=== PATIENT | male | born 2005 | race Caucasian/White ===

== ENCOUNTER 2025-10-18 14:18 | Inpatient (IN) ==
[2025-10-18] MEDS: ALBUT/IPRATROP 3MG/0.5MG NEB 3 ML VIAL ONE (14:40)
[2025-10-18] MEDS: ALBUT/IPRATROP 3MG/0.5MG NEB 3 ML VIAL INH STA (14:40)
--- NOTE | 2025-10-18 14:51 | Emergency Department Note ---
History of Present Illness General Chief complaint: Vomiting Stated complaint: VOMITING, FEVER, SOB Time Seen by Provider: 10/18/25 14:38 Source: patient Mode of arrival: ambulatory Limitations: no limitations History of Present Illness Maximum Pain Intensity: 8 Patient is a 20-year-old male who presents with shortness of breath that started after he vomited. He said he threw up twice. Nonbilious nonbloody emesis. Shortly afterwards he started to develop chest tightness and difficulty breathing. He does report some burning to his chest as well that started after the vomiting. He states last night he started to become "sick". He reports a fever of 102 Fahrenheit as well as a cough and sore throat. No sick contacts at home. No history of wheezing or asthma. He does have a history of smoking marijuana in the past but denies any current smoking. No history of blood clots, recent travel, surgery, lower extremity swelling or pain. Home Medications Medication Instructions Recorded Confirmed Type No Known Home Medications 10/18/25 10/18/25 History Allergies Allergy/AdvReac Type Severity Reaction Status Date / Time No Known Allergies Allergy Unverified 10/18/25 15:31 Past Med/Surg History Problem List (Updated 10/18/25 @ 21:22 by Eligio Abdul MD) Atelectasis (Acute) Subcutaneous emphysema (Acute) Influenza (Acute) Pneumomediastinum (Acute) Bilateral pneumothorax (Acute) Social History Smoking Status: Former smoker Preferred Language: Albanian Feels Safe at Home: Yes Review of Systems Review of systems negative outside of positive findings mentioned in HPI. Physical Exam Vital Signs Vital Signs - 24 hr 10/18/25 14:25 10/18/25 14:36 10/18/25 14:36 Temperature 36.9 C Temperature Source Temporal Artery Scan Pulse Rate 128 H 110 H Pulse Rate [Apical] Pulse Rate from SpO2 Sensor Respiratory Rate 26 H 19 Respiratory Effort / Characteristics Short of Breath Respiratory Depth Shallow Respiratory Pattern Blood Pressure 152/73 H Blood Pressure [Right Arm] Blood Pressure Mean 99 Blood Pressure Mean [Right Arm] Pulse Oximetry 84 L 87 L 87 L Oxygen Delivery Method Nasal Cannula Room Air Nebulizer Oxygen Flow Rate Sepsis Recent Fever Within 48 Hours No Sepsis New/Unexplained Change in Mental Status N/A Sepsis Action Taken by Nursing Physician Notified Oxygen Flow Rate - Titration 10 Pulse Oximetry Post Tiitration 94 10/18/25 14:55 10/18/25 14:55 10/18/25 15:00 Temperature Temperature Source Pulse Rate 120 H 119 H Pulse Rate [Apical] 120 H Pulse Rate from SpO2 Sensor 119 H Respiratory Rate 19 20 Respiratory Effort / Characteristics Respiratory Depth Shallow Respiratory Pattern Blood Pressure Blood Pressure [Right Arm] 94/68 L Blood Pressure Mean Blood Pressure Mean [Right Arm] 76 Pulse Oximetry 90 91 Oxygen Delivery Method Nasal Cannula Nasal Cannula Oxygen Flow Rate 5 7 Sepsis Recent Fever Within 48 Hours Sepsis New/Unexplained Change in Mental Status Sepsis Action Taken by Nursing Oxygen Flow Rate - Titration Pulse Oximetry Post Tiitration 10/18/25 15:00 10/18/25 15:00 10/18/25 15:30 Temperature Temperature Source Pulse Rate 131 H Pulse Rate [Apical] Pulse Rate from SpO2 Sensor 129 H Respiratory Rate Respiratory Effort / Characteristics Respiratory Depth Respiratory Pattern Blood Pressure 108/81 108/81 Blood Pressure [Right Arm] Blood Pressure Mean 94 94 Blood Pressure Mean [Right Arm] Pulse Oximetry 92 Oxygen Delivery Method Nebulizer Oxygen Flow Rate Sepsis Recent Fever Within 48 Hours Sepsis New/Unexplained Change in Mental Status Sepsis Action Taken by Nursing Oxygen Flow Rate - Titration Pulse Oximetry Post Tiitration 10/18/25 15:30 10/18/25 15:30 10/18/25 16:00 Temperature Temperature Source Pulse Rate 131 H Pulse Rate [Apical] Pulse Rate from SpO2 Sensor 132 H Respiratory Rate 36 H Respiratory Effort / Characteristics Respiratory Depth Respiratory Pattern Blood Pressure 113/67 113/67 98/50 L Blood Pressure [Right Arm] Blood Pressure Mean 93 93 66 Blood Pressure Mean [Right Arm] Pulse Oximetry 91 Oxygen Delivery Method Oxymask Oxygen Flow Rate 9 Sepsis Recent Fever Within 48 Hours Sepsis New/Unexplained Change in Mental Status Sepsis Action Taken by Nursing Oxygen Flow Rate - Titration Pulse Oximetry Post Tiitration 10/18/25 16:01 10/18/25 16:03 10/18/25 16:03 Temperature Temperature Source Pulse Rate 130 H Pulse Rate [Apical] Pulse Rate from SpO2 Sensor 132 H Respiratory Rate 22 Respiratory Effort / Characteristics Respiratory Depth Respiratory Pattern Blood Pressure 98/50 L Blood Pressure [Right Arm] Blood Pressure Mean 71 Blood Pressure Mean [Right Arm] Pulse Oximetry 88 L 90 Oxygen Delivery Method Nasal Cannula Oxymask Oxygen Flow Rate 7 9 Sepsis Recent Fever Within 48 Hours Sepsis New/Unexplained Change in Mental Status Sepsis Action Taken by Nursing Oxygen Flow Rate - Titration 9 Pulse Oximetry Post Tiitration 91 10/18/25 16:11 10/18/25 16:30 10/18/25 16:30 Temperature 38.0 C H Temperature Source Oral Pulse Rate 127 H Pulse Rate [Apical] Pulse Rate from SpO2 Sensor 128 H Respiratory Rate Respiratory Effort / Characteristics Respiratory Depth Respiratory Pattern Blood Pressure 105/68 Blood Pressure [Right Arm] Blood Pressure Mean 88 Blood Pressure Mean [Right Arm] Pulse Oximetry 92 Oxygen Delivery Method Oxymask Oxygen Flow Rate 9 Sepsis Recent Fever Within 48 Hours Sepsis New/Unexplained Change in Mental Status Sepsis Action Taken by Nursing Oxygen Flow Rate - Titration Pulse Oximetry Post Tiitration 10/18/25 17:00 10/18/25 17:00 10/18/25 17:18 Temperature Temperature Source Pulse Rate 127 H 123 H Pulse Rate [Apical] Pulse Rate from SpO2 Sensor 127 H 121 H Respiratory Rate 43 H Respiratory Effort / Characteristics Respiratory Depth Respiratory Pattern Blood Pressure 110/60 Blood Pressure [Right Arm] Blood Pressure Mean 70 Blood Pressure Mean [Right Arm] Pulse Oximetry 90 89 L Oxygen Delivery Method Oxymask Oxymask Oxygen Flow Rate 9 9 Sepsis Recent Fever Within 48 Hours Sepsis New/Unexplained Change in Mental Status Sepsis Action Taken by Nursing Oxygen Flow Rate - Titration Pulse Oximetry Post Tiitration 10/18/25 17:19 10/18/25 17:21 10/18/25 17:30 Temperature Temperature Source Pulse Rate 121 H 121 H Pulse Rate [Apical] Pulse Rate from SpO2 Sensor 121 H 119 H Respiratory Rate Respiratory Effort / Characteristics Respiratory Depth Respiratory Pattern Blood Pressure 138/62 138/62 134/58 L Blood Pressure [Right Arm] Blood Pressure Mean 75 87 83 Blood Pressure Mean [Right Arm] Pulse Oximetry 89 L 92 Oxygen Delivery Method Oxymask Oxymask Oxygen Flow Rate 9 10 Sepsis Recent Fever Within 48 Hours Sepsis New/Unexplained Change in Mental Status Sepsis Action Taken by Nursing Oxygen Flow Rate - Titration Pulse Oximetry Post Tiitration 10/18/25 18:17 10/18/25 18:30 10/18/25 18:49 Temperature Temperature Source Pulse Rate 112 H 115 H Pulse Rate [Apical] 115 H Pulse Rate from SpO2 Sensor 111 H Respiratory Rate 32 H 33 H Respiratory Effort / Characteristics Spontaneous Respiratory Depth Respiratory Pattern Tachypnea Blood Pressure 110/76 Blood Pressure [Right Arm] 135/72 Blood Pressure Mean 87 Blood Pressure Mean [Right Arm] 93 Pulse Oximetry 93 93 Oxygen Delivery Method Oxymask Oxymask Oxygen Flow Rate 10 10 Sepsis Recent Fever Within 48 Hours Sepsis New/Unexplained Change in Mental Status Sepsis Action Taken by Nursing Oxygen Flow Rate - Titration Pulse Oximetry Post Tiitration 10/18/25 19:00 10/18/25 20:10 Temperature Temperature Source Pulse Rate 112 H 112 H Pulse Rate [Apical] Pulse Rate from SpO2 Sensor 113 H Respiratory Rate 27 H 35 H Respiratory Effort / Characteristics Respiratory Depth Respiratory Pattern Blood Pressure 128/61 129/73 Blood Pressure [Right Arm] Blood Pressure Mean 83 94 Blood Pressure Mean [Right Arm] Pulse Oximetry 92 94 Oxygen Delivery Method Oxymask Oxymask Oxygen Flow Rate 10 7 Sepsis Recent Fever Within 48 Hours Sepsis New/Unexplained Change in Mental Status Sepsis Action Taken by Nursing Oxygen Flow Rate - Titration Pulse Oximetry Post Tiitration See below Constitutional WD/WN, vitals as above ENMT external ear and nose normal, oropharynx normal Neck trachea midline, no thyromegaly Respiratory + labored breathing, + retractions and + uses accessory muscles Auscultation: + wheezes Cardiovascular Rate/Rhythm: + tachycardic Heart Sounds: normal S1 and normal S2 Extremities: no calf tenderness and no edema Course Administered Medications Discontinued Medications Albuterol (Albut/Ipratrop 3mg/0.5mg Neb 3 Ml Vial) Confirm Administered Dose 3 ml .ROUTE .STK-MED ONE Stop: 10/18/25 14:34 Last Admin: 10/18/25 14:40 Dose: Not Given Documented By: YURI Albuterol (Albut/Ipratrop 3mg/0.5mg Neb 3 Ml Vial) 3 ml INH NOW STA Stop: 10/18/25 14:35 Last Admin: 10/18/25 14:40 Dose: 3 ml Documented By: YURI Albuterol (Albuterol 0.083% Nebu Soln 3 Ml Vial) 10 mg NEB NOW STA; Protocol Stop: 10/18/25 15:02 Last Admin: 10/18/25 15:10 Dose: 10 mg Documented By: YURI Hydromorphone HCl (Hydromorphone Inj 1 Mg/Ml Syringe) Confirm Administered Dose 1 mg .ROUTE .STK-MED ONE Stop: 10/18/25 19:37 Last Increment: 10/18/25 19:40 Dose: 0.5 mg Documented By: GERALD Azithromycin (Zithromax) 500 mg in 255 mls @ 127.5 mls/hr IV NOW ONE Stop: 10/18/25 18:57 Last Infusion: 10/18/25 20:20 Dose: Infused Documented By: Admin: 10/18/25 18:06 Dose: 127.5 mls/hr Documented By: GERALD Ceftriaxone Sodium (Rocephin) 1,000 mg in 50 mls @ 100 mls/hr IV NOW STA Stop: 10/18/25 17:27 Last Infusion: 10/18/25 17:46 Dose: Infused Documented By: Admin: 10/18/25 17:14 Dose: 100 mls/hr Documented By: GERALD Sodium Chloride (Nss) 1,000 mls @ 999 mls/hr IV .Q1H1M ONE Stop: 10/18/25 18:17 Last Infusion: 10/18/25 18:33 Dose: Infused Documented By: Admin: 10/18/25 17:30 Dose: 999 mls/hr Documented By: GERALD Ioversol (Optiray 320 100ml) 90 ml IV ONCE ONE Stop: 10/18/25 18:04 Last Admin: 10/18/25 18:04 Dose: 90 ml Documented By: MARGRET Ketorolac Tromethamine (Ketorolac Tromethamine 15 Mg/Ml Vial) 15 mg IV NOW ONE Stop: 10/18/25 17:42 Last Admin: 10/18/25 17:44 Dose: 15 mg Documented By: GERALD Lidocaine HCl (Lidocaine 2% Local 50 Ml Vial) Confirm Administered Dose 50 ml .ROUTE .STK-MED ONE Stop: 10/18/25 19:50 Last Admin: 10/18/25 20:19 Dose: 8 ml Documented By: GERALD Lorazepam (Lorazepam 1 Mg/1 Ml Syr Ed Inj Use) Confirm Administered Dose 1 mg .ROUTE .STK-MED ONE Stop: 10/18/25 19:38 Last Admin: 10/18/25 19:40 Dose: 0.5 mg Documented By: GERALD Magnesium Sulfate/Dextrose (Magnesium Sulfate 1gm / D5w Bag) 2 gm IV NOW STA Stop: 10/18/25 14:35 Last Admin: 10/18/25 14:57 Dose: 2 gm Documented By: YURI Methylprednisolone (Methylprednisolone 125 Mg/2 Ml Vial) 125 mg IV NOW STA Stop: 10/18/25 14:35 Last Admin: 10/18/25 14:57 Dose: 125 mg Documented By: YURI Oseltamivir Phosphate (Oseltamivir Phosphate 75 Mg Cap) 75 mg PO NOW STA Stop: 10/18/25 17:18 Last Admin: 10/18/25 17:24 Dose: 75 mg Documented By: GERALD Medical Decision Making Differential Diagnosis DDx includes but not limited to: Viral URI, reactive airway disease, influenza, COVID-19, pneumonia, pneumomediastinum, esophageal perforation, Boerhaave syndrome, pneumothorax Medical Records Attestation: I reviewed the patient's medical records. Home Medications Current Medication List: was personally reviewed by me Laboratory Data Attestation: I reviewed the patient's lab results. 10/18/25 14:30 10/18/25 14:30 Lab Results 10/18/25 Range/Units 14:30 WBC 11.12 H (4.8-10.8) K/ul RBC 5.26 (4.70-6.10) M/uL Hgb 15.6 (14.0-18.0) g/dL Hct 44.4 (42.0-52.0) % MCV 84.4 (80.0-100.0) fL MCH 29.7 (25.0-34.0) pg MCHC 35.1 (32.0-36.0) g/dL RDW Std Deviation 36.7 (36.4-46.3) fL RDW Coeff of Princess 12.2 (11.5-14.5) % Plt Count 194 (130-400) K/uL MPV 10.8 (9.4-12.4) fL Immature Gran % (Auto) 0.3 % Neut % (Auto) 85.7 % Lymph % (Auto) 7.2 % [place] % (Auto) 6.6 % Eos % (Auto) 0.1 % Baso % (Auto) 0.1 % Neut # (Auto) 9.54 H (1.40-6.50) K/uL Lymph # (Auto) 0.80 L (1.20-3.40) K/uL [place] # (Auto) 0.73 H (0.11-0.59) K/uL Eos # (Auto) 0.01 (0.00-0.50) K/uL Baso # (Auto) 0.01 (0.00-0.20) K/uL Immature Gran # (Auto) 0.03 (0.01-0.20) K/uL Sodium 136 (136-145) mmol/L Potassium 3.5 (3.5-5.1) mmol/L Chloride 99 (98-107) mmol/L Carbon Dioxide 26 (21-32) mmol/L Anion Gap 11 (3-11) BUN 12 (6-23) mg/dl Creatinine 1.00 (0.6-1.4) mg/dl Est Cr Clr Drug Dosing 142.0 ml/min eGFR 109.81 BUN/Creatinine Ratio 12.0 (10-20) Glucose 141 H (70-99(Fasting)) mg/dl Calcium 9.4 (8.6-10.3) mg/dl Adenovirus (PCR) Not Detected (NotDetected) B. pertussis DNA (PCR) Not Detected (NotDetected) B.parapertussis DNA PCR Not Detected (NotDetected) C. pneumoniae DNA (PCR) Not Detected (NotDetected) Coronavirus OC43 (PCR) Not Detected (NotDetected) Coronavirus HKU1 (PCR) Not Detected (NotDetected) Coronavirus 229E (PCR) Not Detected (NotDetected) SARS-CoV-2 (PCR) Not Detected (NotDetected) Coronavirus NL63 (PCR) Not Detected (NotDetected) Human Metapneumovir PCR Not Detected (NotDetected) Influenza A (H3) PCR DETECTED A (NotDetected) Influenza Type B (PCR) Not Detected (NotDetected) M. pneumoniae (PCR) Not Detected (NotDetected) Parainfluenza 1 (PCR) Not Detected (NotDetected) Parainfluenza 2 (PCR) Not Detected (NotDetected) Parainfluenza 3 (PCR) Not Detected (NotDetected) Parainfluenza 4 (PCR) Not Detected (NotDetected) RSV (PCR) Not Detected (NotDetected) Entero/Rhino (PCR) Not Detected (NotDetected) Imaging Data Radiologist's Impression: Chest X-Ray 10/18/25 14:34 SINGLE VIEW CHEST CLINICAL HISTORY: Dyspnea FINDINGS: An AP, portable, upright chest radiograph is obtained. No prior studies are available for comparison at the time of dictation. The cardiomediastinal silhouette is unremarkable. There is mild bibasilar atelectasis. No airspace consolidation or large pleural effusion is identified. Pneumomediastinum is observed. There is a small right apical pneumothorax with approximately 6 mm pleural separation. There is also likely a small left-sided pneumothorax. These are difficult to assess due to overlying subcutaneous gas. The bony thorax is grossly intact. There is extensive subcutaneous emphysema in the lower neck and upper chest bilaterally. IMPRESSION: 1. Pneumomediastinum with extensive subcutaneous emphysema in the lower neck and upper chest. 2. There is a small right apical pneumothorax, and likely a small left apical pneumothorax. 3. No airspace consolidation or large pleural effusion is identified. ACT 112: Negative or not required by law. Electronically signed by: Gael Cain M.D. 10/18/2025 3:[address] 10/18/25 17:42 Technique: Axial computed tomography images were obtained of the chest after the administration of intravenous and oral contrast No prior examination is available for comparison Findings: There is a moderate sized left pneumothorax. There is a minimal right pneumothorax There is a large amount of pneumomediastinum, extending into chest wall air. No clear leakage of contrast is seen into the mediastinum from the esophagus. There is no clear esophageal wall thickening There is complete collapse of the left lower lobe. There is partial collapse of the right lower lobe. There is no pleural effusion. There is no sign of pulmonary fibrosis or other diffuse interstitial process. No endobronchial lesion is seen There is no mediastinal, hilar, or axillary adenopathy. The thoracic aorta appears unremarkable with no sign of aneurysm or dissection. There is no pericardial effusion The visualized upper abdomen appears unremarkable. No fracture is seen. No focal osseous lesion is evident Impression: 1. Moderate sized left pneumothorax and minimal right pneumothorax 2. Large amount of pneumomediastinum and chest wall air 3. No clear evidence of esophageal perforation 4. Left lower lobe collapse and partial right lower lobe collapse ACT 112: Positive. There are findings on this exam that require communication between the performing entity and the patient following Patient Test Result Information Act ([place] ACT 112) guidelines. Electronically signed by Walter Tabor 10-18-2025 6:54 PM MDM Narrative Patient is a 20-year-old male presents with shortness of breath and hypoxia. He was hypoxic to 84% in triage. Diffuse wheezing noted on my initial examination. DuoNeb treatment ordered was ordered. Patient was brought back to 8 1 to initiate treatment. Was also given IV magnesium and Solu-Medrol while workup was initiated. Initial chest x-ray shows evidence of small apical pneumothoraces bilaterally as well as significant pneumomediastinum extending to the neck bilaterally. Discussed the case with Dr. Terrazas with pulmonology and hospitalist team who recommend CT of the chest with oral contrast to rule out esophageal perforation. CT without evidence of esophageal injury. Significant lower lobe collapse bilaterally worse on the left with a moderate-sized pneumothorax. Dr. Carrasquillo placed a pigtail catheter at bedside here today and patient will be admitted to the ICU team. Broad-spectrum antibiotics were ordered to cover for possible underlying pneumonia. Influenza A positive here today. Tamiflu was ordered and given. No evidence of septic shock or severe sepsis. Stable for admission to hospitalist service. Authorized and Performed by: Total critical care time: Approximately 40 CC diagnosis: Due to a high probability of clinically significant, life threatening deterioration, the patient required my highest level of preparedness to intervene emergently and I personally spent this critical care time directly and personally managing the patient. This critical care time included obtaining a history; examining the patient; pulse oximetry; ordering and review of studies; arranging urgent treatment with development of a management plan; evaluation of patient's response to treatment; frequent reassessment; and, discussions with other providers. This critical care time was performed to assess and manage the high probability of imminent, life-threatening deterioration that could result in multi-organ failure. It was exclusive of separately billable procedures and treating other patients and teaching time. Please see MDM section and the rest of the note for further information on patient assessment and treatment. Impression & Plan Bilateral pneumothorax, Pneumomediastinum, Influenza, Subcutaneous emphysema, Atelectasis Discharge Plan Visit Data Chief Complaint: Vomiting Stated Complaint: VOMITING, FEVER, SOB ED Provider: Eligio Abdul Discharge Problem: Bilateral pneumothorax, Pneumomediastinum, Influenza, Subcutaneous emphysema, Atelectasis Patient Disposition: Admitted As Inpatient Condition: Critical Forms Stand Alone Forms: [facility] Prescriptions Prescriptions: No Action No Known Home Medications Referrals Referrals: PCP,NO [Primary Care Provider] -
[2025-10-18] MEDS: MAGNESIUM SULFATE 1GM / D5W BAG IV STA (14:57)
[2025-10-18] MEDS: ALBUTEROL 0.083% NEBU SOLN 3 ML VIAL NEB STA (15:10)
[2025-10-18 15:16] LABS: Hematocrit (blood only) 44.4 % (42.0-52.0); Hemoglobin 15.6 g/dL (14.0-18.0); Immature Granulocytes # (auto) 0.03 K/uL (0.01-0.20); Immature Granulocytes % (auto) 0.3 %; Mean Corpuscular Hemoglobin 29.7 pg (25.0-34.0); Mean Corpuscular Volume 84.4 fL (80.0-100.0); Platelet Count 194 K/uL (130-400); RDW Standard Deviation 36.7 fL (36.4-46.3); Red Blood Count 5.26 M/uL (4.70-6.10); White Blood Count 11.12 K/ul (4.8-10.8)
[2025-10-18 15:35] LABS: Anion Gap 11.0 (3-11); Blood Urea Nitrogen 12.0 mg/dl (6-23); Calcium 9.4 mg/dl (8.6-10.3); Carbon Dioxide 26.0 mmol/L (21-32); Chloride 99.0 mmol/L (98-107); Creatinine Clr Calc Pharmacy 142.0 ml/min; Glucose 141.0 mg/dl (70-99(Fasting)); Potassium 3.5 mmol/L (3.5-5.1); Sodium 136.0 mmol/L (136-145)
--- NOTE | 2025-10-18 15:37 | XRay Report ---
SINGLE VIEW CHEST CLINICAL HISTORY: Dyspnea FINDINGS: An AP, portable, upright chest radiograph is obtained. No prior studies are available for c omparison at the time of dictation. The cardiomediastinal silhouette is unremarkable. There is mild b ibasilar atelectasis. No airspace consolidation or large pleural effusion is identified. Pneumomedias tinum is observed. There is a small right apical pneumothorax with approximately 6 mm pleural separat ion. There is also likely a small left-sided pneumothorax. These are difficult to assess due to overl little subcutaneous gas. The bony thorax is grossly intact. There is extensive subcutaneous emphysema i n the lower neck and upper chest bilaterally. IMPRESSION: 1. Pneumomediastinum with extensive subcutaneous emphysema in the lower neck and upper chest. 2. There is a small right apical pneumothorax, and likely a small left apical pneumothorax. 3. No airspace consolidation or large pleural effusion is identified. ACT 112: Negative or not required by law. Electronically signed by: Gael Cain M.D. 10/18/2025 3:35 PM
[2025-10-18 16:24] LABS: Chlamydia pneumoniae PCR Not Detected (NotDetected); Coronavirus 229E PCR Not Detected (NotDetected); Coronavirus CoV-2 (COVID19)PCR Not Detected (NotDetected); Coronavirus HKU1 PCR Not Detected (NotDetected); Coronavirus NL63 PCR Not Detected (NotDetected); Coronavirus OC43PCR Not Detected (NotDetected); Human Metapneumovirus PCR Not Detected (NotDetected); Influenza A (H3) PCR DETECTED (NotDetected); Parainfluenza Virus 1 PCR Not Detected (NotDetected); Parainfluenza Virus 2 PCR Not Detected (NotDetected); Parainfluenza Virus 3 PCR Not Detected (NotDetected); Parainfluenza Virus 4 PCR Not Detected (NotDetected); Respiratory Syncytial VirusPCR Not Detected (NotDetected); Rhinovirus/Enterovirus PCR Not Detected (NotDetected)
[2025-10-18] MEDS: cefTRIAXone SODIUM 1,000 MG/50 ML BAG IV STA (17:14)
[2025-10-18] MEDS: OSELTAMIVIR PHOSPHATE 75 MG CAP PO STA (17:24)
[2025-10-18] MEDS: SODIUM CHLORIDE 0.9% 1,000 ML IV ONE (17:30)
[2025-10-18] MEDS: KETOROLAC TROMETHAMINE 15 MG/ML VIAL IV ONE (17:44)
[2025-10-18] MEDS: OPTIRAY 320 100ml IV ONE (18:04)
[2025-10-18] MEDS: AZITHROMYCIN 500 MG/255 ML BAG IV ONE (18:06)
--- NOTE | 2025-10-18 18:56 | CT Scan Report ---
Technique: Axial computed tomography images were obtained of the chest after the administration of intravenous and oral contrast No prior examination is available for comparison Findings: There is a moderate sized left pneumothorax. There is a minimal right pneumothorax There is a large amount of pneumomediastinum, extending into chest wall air. No clear leakage of contrast is seen into the mediastinum from the esophagus. There is no clear esophageal wall thickening There is complete collapse of the left lower lobe. There is partial collapse of the right lower lobe. There is no pleural effusion. There is no sign of pulmonary fibrosis or other diffuse interstitial process. No endobronchial lesion is seen There is no mediastinal, hilar, or axillary adenopathy. The thoracic aorta appears unremarkable with no sign of aneurysm or dissection. There is no pericardial effusion The visualized upper abdomen appears unremarkable. No fracture is seen. No focal osseous lesion is evident Impression: 1. Moderate sized left pneumothorax and minimal right pneumothorax 2. Large amount of pneumomediastinum and chest wall air 3. No clear evidence of esophageal perforation 4. Left lower lobe collapse and partial right lower lobe collapse ACT 112: Positive. There are findings on this exam that require communication between the performing entity and the patient following Patient Test Result Information Act ([place] ACT 112) guidelines. Electronically signed by Walter Tbaor 10-18-2025 6:54 PM
[2025-10-18] MEDS: LORazepam 1 MG/1 ML SYR ED Inj Use ONE (19:40)
[2025-10-18] MEDS: HYDROmorphone INJ 1 MG/ML SYRINGE ONE (20:18)
[2025-10-18] MEDS: LIDOCAINE 2% LOCAL 50 ML VIAL ONE (20:19)
--- NOTE | 2025-10-18 20:50 | Procedure Note ---
Procedure Note Date of Service October 18, 2025 Written consent obtained from the patient prior to the procedure. Timeout performed immediately prior to the procedure. Limited thoracic ultrasound was performed of the left hemithorax. Lung point was identified at the anterior aspect just medial to the left nipple at the fifth intercostal space. This area was marked. Pneumothorax catheter (8.5 Filipino left-sided) Procedure: Left-sided pneumothorax catheter Indication: Pneumothorax Anesthesia: 15 mL lidocaine 1% Prior to procedure, chest x-ray films were reviewed by myself and demonstrated a loculated left pneumothorax. A time-out was completed verifying correct patient, procedure, site, positioning, and implant(s) or special equipment if applicable. Utilizing bedside ultrasound, chest wall was evaluated for location for optimal chest tube placement. Location between the fifth and sixth ribs were marked on the skin using gentle pressure. The left sided chest wall was prepped with chlorhexidine and draped in the typical sterile fashion. 15 mL of 1% Lidocaine without epinephrine was used to anesthetize the skin down to the dorsal surface of the fifth rib. Air return confirmed entry into the pleural space. Lidocaine was injected into the pleural space for increased anesthetization. Introducer needle on syringe was inserted in perpendicular fashion taking care to ride just above the dorsal surface of the fifth rib. Entry into the pleural space was heralded by air return into the syringe while under gentle aspiration. Guide wire was advanced into the pleural space without resistance and the introducer needle was subsequently removed. Scalpel was used to make small incision of the superficial tissue, parallel to the direction of the rib anatomy. Dilator was advanced uneventfully over the guide wire into the pleural space. 8.5 Filipino Catheter was inserted into the pleural space. Inner introducer and guide wire were removed. Drain was immediately connected to pre-prepared SUSAN pleur-evac system. Pigtail was sutured securely in place and sterile dressing was applied. Chest tube was placed to -10 cmH2O suction. Patient tolerated procedure well. Blood Loss: Minimal Complications: None Post procedure Chest X-ray was ordered and reviewed by myself which demonstrated adequate placement. [facility] [place] Procedure Codes (Charges) Pulmonary/Thoracic Procedure 1: Pulmonary and Thoracic: 62530 Tube thoracostomy Procedure 2: Pulmonary and Thoracic: 94314 US, Chest, real time with imaging documentation Coding CPT Codes Pulmonary/Thoracic - Pulmonary and Thoracic: 46924 Tube thoracostomy ([id number]) Pulmonary/Thoracic - Pulmonary and Thoracic: 60056 US, Chest, real time with imaging documentation ([id number]) Additional Codes Date of Service ([facility].SURGERY)
--- NOTE | 2025-10-18 20:51 | Pulmonary Consultation ---
Date of Consultation October 18, 2025 Assessment & Plan (1) Bilateral pneumothorax: Left-sided anterior fifth intercostal space 8.5 Mongolian pigtail catheter placed with improvement of symptoms. Will leave this -10 cm water suction. Monitor daily x-rays. Monitor for signs of pneumo pericardium in light of the extensive pneumomediastinum. Bilateral pneumothoraces and pneumomediastinum secondary to extensive coughing from acute bronchitis related to viral infection. Will schedule [id number] cough suppressants. (2) Pneumomediastinum: See above. Monitor hemodynamics and respiratory status closely. Daily x-rays. (3) Influenza: Start Tamiflu. Supportive care. Avoid positive pressure if able. (4) Subcutaneous emphysema: Secondary to underlying pneumothorax and pneumomediastinum. Should resolve with time. (5) Atelectasis: Patient with extensive bibasilar atelectasis leading to intrapulmonary shunt and hypoxemia. I think this is the main driving force for his hypoxemia. Initiate incentive spirometry. Avoid positive pressure ventilation if able in light of the pneumomediastinum and pneumothorax. Plan Patient's parents updated over the phone extensively per the patient's request and with his consent. I spent 15 minutes reviewing the electronic medical record/relevant imaging, 30 minutes discussing diagnosis and treatment plan with patient/family, and 10 minutes discussing care plan with ancillary staff such as RT/RN/pharmacist/drop wire aligner/PT/OT/other consulting medical services. CRITICAL CARE TIME I have personally spent 55 minutes of critical care time in the direct management of this patient. This is a life/limb threatening event. This includes time spent evaluating patient, direct bedside care, chart review, placing or ders, interpretation of diagnostic studies, discussion with consultants, patient, and family members, as well as other required patient management activities. This time is exclusive of all separately billable procedures, and teaching time and separate from and in addition to any other critical care service time. History of Present Illness Reason for Consultation: Bilateral pneumothoraces and pneumomediastinum History of Present Illness 20-year-old male with no significant past medical history who developed flulike illness and sudden onset chest pain and shortness of breath last night presenting to the ER. Patient underwent a chest x-ray which showed small bilateral pneumothoraces. Due to worsening respiratory status he underwent a CT chest which revealed a moderate-sized medial left sided pneumothorax and a small right apical pneumothorax. Extensive pneumomediastinum and subcu air was identified. Patient noted some pressure in his chest and dyspnea. Consent was obtained from the patient to place a left-sided pleural catheter and this was placed with evacuation of the pneumothorax and improvement of symptoms. Patient has been febrile and I asked the ER to start ceftriaxone and azithromycin. Allergies Allergy/AdvReac Type Severity Reaction Status Date / Time No Known Allergies Allergy Unverified 10/18/25 15:31 Home Medications Medication Instructions Recorded Confirmed Type No Known Home Medications 10/18/25 10/18/25 History Patient History Social History Smoking Status: Former smoker Preferred Language: Puerto Rican Feels Safe at Home: Yes Review of Systems Review of Systems: All systems reviewed & are unremarkable except as noted in HPI & below Physical Exam Physical Exam: Constitutional: Patient appears to be of their stated age. Patient is in no apparent distress. Patient is well-developed. Anxious appearing. Eyes: Pupils are equal round and reactive to light. Conjunctivae are normal. Anicteric sclera. Ears nose, mouth and throat: Mallampati class 2. Normal posterior oropharynx. Uvula is midline. Neck: Trachea is midline. Visual inspection is normal. Respiratory: Tachypneic. Extensive crepitus throughout the upper chest wall neck region. Diminished breath sounds bilaterally. Cardiovascular: Regular rate and rhythm. No murmurs. No edema. Gastrointestinal: Normal bowel sounds, soft, nontender and nondistended. No hepatosplenomegaly noted. Musculoskeletal: No cyanosis. Patient is able to move all extremities. Strength is 5 out of 5 in the upper and lower extremities. Skin: No rashes, warm dry and intact. Neurologic: No obvious focal neurological deficits seen. Psychiatric: Alert and oriented x3 with a euthymic affect. Results & Data Results & Data Vital Signs (Past 12 Hours) Vital Signs Temp Pulse Pulse Resp BP BP Pulse Ox 10/18/25 20:10 112 H 35 H 129/73 94 10/18/25 19:00 112 H 27 H 128/61 92 10/18/25 18:49 115 H 10/18/25 18:30 112 H 33 H 110/76 93 10/18/25 18:17 115 H 32 H 135/72 93 10/18/25 17:30 121 H 134/58 L 92 10/18/25 17:21 121 H 138/62 89 L 10/18/25 17:19 138/62 10/18/25 17:18 123 H 89 L 10/18/25 17:00 127 H 43 H 90 10/18/25 17:00 110/60 10/18/25 16:30 127 H 92 10/18/25 16:30 105/68 10/18/25 16:11 38.0 C H 10/18/25 16:03 130 H 22 90 10/18/25 16:03 98/50 L 10/18/25 16:01 88 L 10/18/25 16:00 131 H 36 H 98/50 L 91 10/18/25 15:30 113/67 10/18/25 15:30 113/67 10/18/25 15:30 131 H 92 10/18/25 15:00 108/81 10/18/25 15:00 108/81 10/18/25 15:00 119 H 20 91 10/18/25 14:55 120 H 19 94/68 L 90 10/18/25 14:55 120 H 10/18/25 14:36 87 L 10/18/25 14:36 110 H 19 87 L 10/18/25 14:25 36.9 C 128 H 26 H 152/73 H 84 L O2 Del Method O2 Flow Rate 10/18/25 20:10 Oxymask 7 10/18/25 19:00 Oxymask 10 10/18/25 18:49 10/18/25 18:30 Oxymask 10 10/18/25 18:17 Oxymask 10 10/18/25 17:30 Oxymask 10 10/18/25 17:21 Oxymask 9 10/18/25 17:19 10/18/25 17:18 Oxymask 9 10/18/25 17:00 Oxymask 9 10/18/25 17:00 10/18/25 16:30 Oxymask 9 10/18/25 16:30 10/18/25 16:11 10/18/25 16:03 Oxymask 9 10/18/25 16:03 10/18/25 16:01 Nasal Cannula 7 10/18/25 16:00 Oxymask 9 10/18/25 15:30 10/18/25 15:30 10/18/25 15:30 Nebulizer 10/18/25 15:00 10/18/25 15:00 10/18/25 15:00 Nasal Cannula 7 10/18/25 14:55 Nasal Cannula 5 10/18/25 14:55 10/18/25 14:36 Nebulizer 10/18/25 14:36 Room Air 10/18/25 14:25 Nasal Cannula PG Care Time/CCT Total # of Minutes Spent Total Time Spent with Patient: Total time spent is greater than 50% in coordination of care (as documented) at patient's floor/unit and/or counseling patient: Coding Level of Care Code 03906 INT INP/OBS CARE 2/55MIN Diagnoses Bilateral pneumothorax J93.9 Pneumomediastinum J98.2 Influenza J11.1 Subcutaneous emphysema T79.7XXA Atelectasis J98.11
--- NOTE | 2025-10-18 21:49 | History & Physical Report ---
Date of Service October 18, 2025 Assessment & Plan (1) Bilateral pneumothorax: (2) Pneumomediastinum: (3) Influenza A: (4) Subcutaneous emphysema: Plan The patient is a 20-year-old male with no significant past medical history who had developed some general flulike symptoms for a few days. He then on the day of admission, developed severe shortness of breath and chest pain after vomiting twice. He then developed a temperature up to a max of 102 F, and had a persistent cough and sore throat. He denies any recent travels or sick exposures. No recent marijuana use. Workup in the emergency department included WBC of 11.12, glucose of 141, respiratory BioFire test positive for influenza A initial chest x-ray suggested pneumomediastinum with extensive subcutaneous emphysema in the lower neck and upper chest. There was a small right apical pneumothorax and likely a small left apical pneumothorax. There was no airspace consolidation or large pleural effusion identified. CT scan of the chest revealed a moderate size left pneumothorax and minimal right pneumothorax. Large amount of pneumomediastinum and chest wall air. No evidence of esophageal perforation. Left lower lobe collapse and partial right lower lobe collapse. Patient was seen by pulmonology/critical care Dr. Terrazas while in the ED, and had a chest tube placed left anteriorly. He was then referred for evaluation for admission by hospitalist service to the ICU. Spontaneous bilateral pneumothorax/pneumomediastinum/subcutaneous emphysema- Pneumothorax left greater than right, with chest tube placement anteriorly by critical care medicine while in the ED. Continuing chest tube and care per ICU. Azithromycin 1050 mg p.o. every morning Ceftriaxone 2 g IV every 24 hours Pantoprazole 40 mg IV daily DuoNebs every 2 hours as needed Acetaminophen 600 mg by mouth every 4 hours as needed for mild pain or fever Morphine sulfate 4 mg IV every 3 hours as needed for moderate to severe pain Zofran 4 mg IV every 6 hours as needed Guaifenesin with codeine phosphate 5 mL p.o. every 6 hours Influenza A- Tamiflu 75 mg p.o. twice daily History of Present Illness Primary Care Provider: NO PCP The patient is a 20-year-old male with no significant past medical history who had developed some general flulike symptoms for a few days. He then on the day of admission, developed severe shortness of breath and chest pain after vomiting twice. He then developed a temperature up to a max of 102 F, and had a persistent cough and sore throat. He denies any recent travels or sick exposures. No recent marijuana use. Workup in the emergency department included WBC of 11.12, glucose of 141, respiratory BioFire test positive for influenza A initial chest x-ray suggested pneumomediastinum with extensive subcutaneous emphysema in the lower neck and upper chest. There was a small right apical pneumothorax and likely a small left apical pneumothorax. There was no airspace consolidation or large pleural effusion identified. CT scan of the chest revealed a moderate size left pneumothorax and minimal right pneumothorax. Large amount of pneumomediastinum and chest wall air. No evidence of esophageal perforation. Left lower lobe collapse and partial right lower lobe collapse. Patient was seen by pulmonology/critical care Dr. Terrazas while in the ED, and had a chest tube placed left anteriorly. He was then referred for evaluation for admission by hospitalist service to the ICU Allergies Allergy/AdvReac Type Severity Reaction Status Date / Time No Known Allergies Allergy Unverified 10/18/25 15:31 Home Medications Medication Instructions Recorded Confirmed Type No Known Home Medications 10/18/25 10/18/25 History Past Med/Surg History Problem List (Updated 10/19/25 @ 06:21 by Mamadou Jules MD) Influenza A Atelectasis (Acute) Subcutaneous emphysema (Acute) Influenza (Acute) Pneumomediastinum (Acute) Bilateral pneumothorax (Acute) Social History Smoking Status: Never smoker Second Hand Exposure: No; Do You Dip or Chew Tobacco: No; Tobacco Cessation Education Requested by Patient: No Hx Alcohol Use: Yes Alcohol type: beer and hard liquor Hx Substance Use: No Preferred Language: Polish Communication Ability: Effective Ward Service Supervisor Required: No Beliefs That Will Affect Care: None Current Living Situation: Other Current Living Situation Comment: Lives with 4 Roommates Other Information That Helps Us Care for You: No Feels Safe at Home: Yes Safety Concerns: Feels Safe At This Time Assistive Devices: None Review of Systems Review of Systems: The patient denies lower extremity swelling, diarrhea , constipation, abdominal pain, pelvic pain, blood in urine or stool, dysuria, urinary frequency or urgency, loss of consciousness, rash, abnormal bruising or bleeding, focal weakness, numbness or tingling in arms or legs. The review of systems is otherwise negative other than for that already noted above, and at least 10 systems have been reviewed. Physical Exam Physical Exam: The patient is awake, alert and oriented 3, normocephalic and atraumatic, sitting upright in bed and in no acute distress at the time of my exam, post chest tube placement HEENT--PERRL, EOMI, mucous membranes and oropharynx normal Neck--supple. No JVD. No bruits. Thyroid normal, trachea midline, no adenopathy. Heart--normal S1 and S2. No murmurs, rubs or gallops. Lungs--decreased breath sounds on left. no respiratory distress, no accessory muscle use post chest tube placement.-Chest wall crepitus Abdomen--normal bowel sounds and soft. Nontender. Nondistended, no hernias or masses, no organomegaly. Extremities--no cyanosis or clubbing. No edema. There are good distal pulses b/l. Dermatologic--normal skin turgor, normal color, no abnormal lymph nodes, no rash. Neurologic--cranial nerves II through XII grossly intact. Rheumatologic--normal range of motion. Psychiatric--normal affect. Results & Data Results & Data Vital Signs (Past 12 Hours) Vital Signs Temp Pulse Pulse Resp BP BP Pulse Ox 10/18/25 20:10 112 H 35 H 129/73 94 10/18/25 19:00 112 H 27 H 128/61 92 10/18/25 18:49 115 H 10/18/25 18:30 112 H 33 H 110/76 93 10/18/25 18:17 115 H 32 H 135/72 93 10/18/25 17:30 121 H 134/58 L 92 10/18/25 17:21 121 H 138/62 89 L 10/18/25 17:19 138/62 10/18/25 17:18 123 H 89 L 10/18/25 17:00 127 H 43 H 90 10/18/25 17:00 110/60 10/18/25 16:30 127 H 92 10/18/25 16:30 105/68 10/18/25 16:11 38.0 C H 10/18/25 16:03 130 H 22 90 10/18/25 16:03 98/50 L 10/18/25 16:01 88 L 10/18/25 16:00 131 H 36 H 98/50 L 91 10/18/25 15:30 113/67 10/18/25 15:30 113/67 10/18/25 15:30 131 H 92 10/18/25 15:00 108/81 10/18/25 15:00 108/81 10/18/25 15:00 119 H 20 91 10/18/25 14:55 120 H 19 94/68 L 90 10/18/25 14:55 120 H 10/18/25 14:36 87 L 10/18/25 14:36 110 H 19 87 L 10/18/25 14:25 36.9 C 128 H 26 H 152/73 H 84 L O2 Del Method O2 Flow Rate 10/18/25 20:10 Oxymask 7 10/18/25 19:00 Oxymask 10 10/18/25 18:49 10/18/25 18:30 Oxymask 10 10/18/25 18:17 Oxymask 10 10/18/25 17:30 Oxymask 10 10/18/25 17:21 Oxymask 9 10/18/25 17:19 10/18/25 17:18 Oxymask 9 10/18/25 17:00 Oxymask 9 10/18/25 17:00 10/18/25 16:30 Oxymask 9 10/18/25 16:30 10/18/25 16:11 10/18/25 16:03 Oxymask 9 10/18/25 16:03 10/18/25 16:01 Nasal Cannula 7 10/18/25 16:00 Oxymask 9 10/18/25 15:30 10/18/25 15:30 10/18/25 15:30 Nebulizer 10/18/25 15:00 10/18/25 15:00 10/18/25 15:00 Nasal Cannula 7 10/18/25 14:55 Nasal Cannula 5 10/18/25 14:55 10/18/25 14:36 Nebulizer 10/18/25 14:36 Room Air 10/18/25 14:25 Nasal Cannula Laboratory Results Laboratory Results WBC 11.53 K/ul (4.8-10.8) H 10/19/25 04:22 RBC 4.92 M/uL (4.70-6.10) 10/19/25 04:22 Hgb 14.6 g/dL (14.0-18.0) 10/19/25 04:22 Hct 42.1 % (42.0-52.0) 10/19/25 04:22 MCV 85.6 fL (80.0-100.0) 10/19/25 04:22 MCH 29.7 pg (25.0-34.0) 10/19/25 04:22 MCHC 34.7 g/dL (32.0-36.0) 10/19/25 04:22 RDW Std Deviation 38.4 fL (36.4-46.3) 10/19/25 04:22 RDW Coeff of Princess 12.4 % (11.5-14.5) 10/19/25 04:22 Plt Count 190 K/uL (130-400) 10/19/25 04:22 MPV 10.4 fL (9.4-12.4) 10/19/25 04:22 Immature Gran % (Auto) 0.7 % 10/19/25 04:22 Neut % (Auto) 89.5 % 10/19/25 04:22 Lymph % (Auto) 3.6 % 10/19/25 04:22 [place] % (Auto) 6.1 % 10/19/25 04:22 Eos % (Auto) 0.0 % 10/19/25 04:22 Baso % (Auto) 0.1 % 10/19/25 04:22 Neut # (Auto) 10.33 K/uL (1.40-6.50) H 10/19/25 04:22 Lymph # (Auto) 0.41 K/uL (1.20-3.40) L 10/19/25 04:22 [place] # (Auto) 0.70 K/uL (0.11-0.59) H 10/19/25 04:22 Eos # (Auto) 0.00 K/uL (0.00-0.50) 10/19/25 04:22 Baso # (Auto) 0.01 K/uL (0.00-0.20) 10/19/25 04:22 Immature Gran # (Auto) 0.08 K/uL (0.01-0.20) 10/19/25 04:22 PT 10.9 Seconds (9.0-12.0) 10/19/25 04:22 INR 1.0 (0.9-1.1) 10/19/25 04:22 APTT 30 Seconds (21-31) 10/19/25 04:22 PTT Ratio 1.1 10/19/25 04:22 Sodium 136 mmol/L (136-145) 10/19/25 04:22 Potassium 4.7 mmol/L (3.5-5.1) D 10/19/25 04:22 Chloride 103 mmol/L (98-107) 10/19/25 04:22 Carbon Dioxide 26 mmol/L (21-32) 10/19/25 04:22 Anion Gap 7 (3-11) 10/19/25 04:22 BUN 12 mg/dl (6-23) 10/19/25 04:22 Creatinine 0.81 mg/dl (0.6-1.4) 10/19/25 04:22 Est Cr Clr Drug Dosing 173.1 ml/min 10/19/25 04:22 eGFR 128.64 10/19/25 04:22 BUN/Creatinine Ratio 14.8 (10-20) 10/19/25 04:22 Glucose 147 mg/dl (70-99(Fasting)) H 10/19/25 04:22 Calcium 9.3 mg/dl (8.6-10.3) 10/19/25 04:22 Magnesium 2.6 mg/dl (1.7-2.4) H 10/19/25 04:22 Total Bilirubin 0.5 mg/dl (0.2-1.0) 10/19/25 04:22 AST 16 U/L (13-39) 10/19/25 04:22 ALT 19 U/L (7-52) 10/19/25 04:22 Alkaline Phosphatase 58 U/L (34-104) 10/19/25 04:22 Total Protein 8.1 gm/dl (6.0-8.3) 10/19/25 04:22 Albumin 4.5 gm/dl (3.4-5.0) 10/19/25 04:22 Globulin 3.6 gm/dl (2.5-4.0) 10/19/25 04:22 Albumin/Globulin Ratio 1.3 (0.9-2) 10/19/25 04:22 Nasal Screen MRSA (PCR) Negative (Negative) 10/18/25 22:50 Adenovirus (PCR) Not Detected (NotDetected) 10/18/25 14:30 B. pertussis DNA (PCR) Not Detected (NotDetected) 10/18/25 14:30 B.parapertussis DNA PCR Not Detected (NotDetected) 10/18/25 14:30 C. pneumoniae DNA (PCR) Not Detected (NotDetected) 10/18/25 14:30 Coronavirus OC43 (PCR) Not Detected (NotDetected) 10/18/25 14:30 Coronavirus HKU1 (PCR) Not Detected (NotDetected) 10/18/25 14:30 Coronavirus 229E (PCR) Not Detected (NotDetected) 10/18/25 14:30 SARS-CoV-2 (PCR) Not Detected (NotDetected) 10/18/25 14:30 Coronavirus NL63 (PCR) Not Detected (NotDetected) 10/18/25 14:30 Human Metapneumovir PCR Not Detected (NotDetected) 10/18/25 14:30 Influenza A (H3) PCR DETECTED (NotDetected) A 10/18/25 14:30 Influenza Type B (PCR) Not Detected (NotDetected) 10/18/25 14:30 M. pneumoniae (PCR) Not Detected (NotDetected) 10/18/25 14:30 Parainfluenza 1 (PCR) Not Detected (NotDetected) 10/18/25 14:30 Parainfluenza 2 (PCR) Not Detected (NotDetected) 10/18/25 14:30 Parainfluenza 3 (PCR) Not Detected (NotDetected) 10/18/25 14:30 Parainfluenza 4 (PCR) Not Detected (NotDetected) 10/18/25 14:30 RSV (PCR) Not Detected (NotDetected) 10/18/25 14:30 Entero/Rhino (PCR) Not Detected (NotDetected) 10/18/25 14:[address] 10/18/25 17:42 Technique: Axial computed tomography images were obtained of the chest after the administration of intravenous and oral contrast No prior examination is available for comparison Findings: There is a moderate sized left pneumothorax. There is a minimal right pneumothorax There is a large amount of pneumomediastinum, extending into chest wall air. No clear leakage of contrast is seen into the mediastinum from the esophagus. There is no clear esophageal wall thickening There is complete collapse of the left lower lobe. There is partial collapse of the right lower lobe. There is no pleural effusion. There is no sign of pulmonary fibrosis or other diffuse interstitial process. No endobronchial lesion is seen There is no mediastinal, hilar, or axillary adenopathy. The thoracic aorta appears unremarkable with no sign of aneurysm or dissection. There is no pericardial effusion The visualized upper abdomen appears unremarkable. No fracture is seen. No focal osseous lesion is evident Impression: 1. Moderate sized left pneumothorax and minimal right pneumothorax 2. Large amount of pneumomediastinum and chest wall air 3. No clear evidence of esophageal perforation 4. Left lower lobe collapse and partial right lower lobe collapse ACT 112: Positive. There are findings on this exam that require communication between the performing entity and the patient following Patient Test Result Information Act ([place] ACT 112) guidelines. Electronically signed by Walter Tabor 10-18-2025 6:54 PM Code Status & VTE Plan Code Status Full code VTE Prophylaxis Plan VTE Prophylaxis will be ordered: Yes PG Care Time/CCT Total # of Minutes Spent Total Time Spent with Patient: Total time spent is greater than 50% in coordination of care (as documented) at patient's floor/unit and/or counseling patient: 41 minutes Coding Level of Care Code 30293 INT INP/OBS CARE 3/75MIN Diagnoses Bilateral pneumothorax J93.9 Pneumomediastinum J98.2 Influenza A J10.1 Subcutaneous emphysema T79.7XXA
[2025-10-18] MEDS ORDERED: MoRPHine SULFATE 4 MG/ML 1 ML CARP\\VIAL IV PRN (22:47)
[2025-10-18] MEDS ORDERED: ALBUT/IPRATROP 3MG/0.5MG NEB 3 ML VIAL NEB PRN (22:47)
[2025-10-18] MEDS ORDERED: ONDANSETRON INJ 2 MG/ML 2 ML VIAL IV PRN (22:47)
--- NOTE | 2025-10-18 23:09 | XRay Report ---
Exam(s): XR CXR 1 VIEW EXAM: XR Chest, 1 View CLINICAL HISTORY: Reason for exam: chest tube. TECHNIQUE: Frontal view of the chest. COMPARISON: Prior chest x-ray from October 18, 2025 at 3:15 PM. FINDINGS: Lungs: There is a tiny left chest tube in place. No consolidation. Pleural space: Small bilateral apical pneumothoraces. Heart: Unremarkable. No cardiomegaly. Mediastinum: Unremarkable. Normal mediastinal contour. Bones/joints: Unremarkable. No acute fracture. Moderate subcutaneous emphysema. IMPRESSION: Stable bilateral apical pneumothoraces. Electronically signed by: Jocelin Carreno MD 10/18/25 23:08 PM
[2025-10-18] MEDS: ACETAMINOPHEN 325 MG TAB PO PRN (23:12)
--- NOTE | 2025-10-19 01:30 | XRay Report ---
EXAM: XR chest 1V portable CLINICAL HISTORY: Eval for worsening pneumothroax. TECHNIQUE: An X-ray image of the chest was obtained in AP projection. COMPARISON: No prior studies are available for comparison. FINDINGS: Pulmonary Parenchyma: Left-sided chest tube with mild apical left pneumothorax. Suggested right apical mild pneumothorax. Suggested a blunted left costophrenic angle. Minimal to mild pneumomediastinum. Slightly increased bilateral perihilar vascular markings, possibly congestion. No evidence of consolidation, collapse, or focal opacities. No pulmonary nodules are identified. No evidence of right pleural effusion or pleural thickening. Heart size and shape are normal. No mediastinal widening or masses. No hilar or mediastinal lymphadenopathy. Bony thorax: Bony thorax appears intact without fractures or deformities. Monitor leads are seen. Surgical emphysema is seen at the neck and left chest as well as the upper right chest region. IMPRESSION: 1. Left-sided chest tube with mild apical pneumothorax. 2. Suggested apical rim of right pneumothorax. 3. Surgical emphysema is seen at the neck and left chest as well as the upper right chest region. 4. Suggested a blunted left costophrenic angle, possibly effusion/atelectasis. 5. Minimal to mild pneumomediastinum. 6. Mildly increased bilateral perihilar vascular markings, possibly congestion. 7. CT chest is advised if clinically indicated. Electronically signed by Abraham Cano 10-19-2025 01:30 AM
[2025-10-19 04:42] LABS: Hematocrit (blood only) 42.1 % (42.0-52.0); Hemoglobin 14.6 g/dL (14.0-18.0); Immature Granulocytes # (auto) 0.08 K/uL (0.01-0.20); Immature Granulocytes % (auto) 0.7 %; Mean Corpuscular Hemoglobin 29.7 pg (25.0-34.0); Mean Corpuscular Volume 85.6 fL (80.0-100.0); Platelet Count 190 K/uL (130-400); RDW Standard Deviation 38.4 fL (36.4-46.3); Red Blood Count 4.92 M/uL (4.70-6.10); White Blood Count 11.53 K/ul (4.8-10.8)
[2025-10-19 04:59] LABS: Alanine Aminotransferase 19.0 U/L (7-52); Albumin Globulin Ratio 1.3 (0.9-2); Albumin Level 4.5 gm/dl (3.4-5.0); Alkaline Phosphatase 58.0 U/L (34-104); Anion Gap 7.0 (3-11); Bilirubin,Total 0.5 mg/dl (0.2-1.0); Blood Urea Nitrogen 12.0 mg/dl (6-23); Calcium 9.3 mg/dl (8.6-10.3); Carbon Dioxide 26.0 mmol/L (21-32); Chloride 103.0 mmol/L (98-107); Creatinine Clr Calc Pharmacy 173.1 ml/min; Globulin 3.6 gm/dl (2.5-4.0); Glucose 147.0 mg/dl (70-99(Fasting)); Magnesium 2.6 mg/dl (1.7-2.4); Potassium 4.7 mmol/L (3.5-5.1); Sodium 136.0 mmol/L (136-145); Total Protein 8.1 gm/dl (6.0-8.3)
[2025-10-19 05:10] LABS: INR 1.0 (0.9-1.1); Partial Thromboplastin Time 30 Seconds (21-31); Prothrombin Time 10.9 Seconds (9.0-12.0)
[2025-10-19] MEDS: OSELTAMIVIR PHOSPHATE 75 MG CAP PO SCH (05:14)
--- NOTE | 2025-10-19 06:24 | Billing Data ---
Date of Service October 19, 2025 Coding Level of Care Code 57078 CRITICAL CARE
[2025-10-19] MEDS: PANTOprazole 40 MG/10 ML SYR IV SCH (08:15)
[2025-10-19] MEDS: cefTRIAXone SODIUM 2,000 MG/50 ML BAG IV SCH (08:15)
[2025-10-19] MEDS: AZITHROMYCIN 250 MG TAB PO SCH (08:15)
--- NOTE | 2025-10-19 08:19 | XRay Report ---
EXAM: XR chest 1V portable CLINICAL HISTORY: follow up ptx TECHNIQUE: An X-ray image of the chest was obtained in AP projection. COMPARISON: 10/18/2025 16:53:[address] and 10/17/2025 CR FINDINGS: Pulmonary Parenchyma: Slight kinking of the in situ left hemithorax tube. Interval: new. Interval: stable chest tube seen in the left lower zone. Minimal left apical pneumothorax. Interval: stable minimal right apical pneumothorax. Interval: stable minimal pneumomediastinum. Interval: stable haziness seen in the left lower zone with blunting of the left costophrenic angle. Interval: stable subcutaneous/surgical emphysema seen in the supraclavicular region and the chest wall. Heart and Mediastinum: Heart size and shape are normal. No mediastinal widening or masses. No hilar or mediastinal lymphadenopathy. Bony Thorax: Bony thorax appears intact without fractures or deformities. Soft Tissues: Soft tissues overlying the chest wall are unremarkable. IMPRESSION: 1. Slight kinking of the in situ left hemithorax tube. Interval: new. 2. Interval: stable chest tube seen in the left lower zone with left apical small pneumothorax. 3. Interval: stable haziness seen in the left lower zone with blunting of the left costophrenic angle. Small pleural effusion. Postinflammatory-infective. 4. Interval: stable minimal right apical pneumothorax. 5. Interval: stable barely perceptible small pneumomediastinum. 6. Interval: stable subcutaneous/surgical emphysema. 7. Compared with the previous CT dated 10/18/2025, the findings remain stable. It is pertinent to add that CT has a higher sensitivity and better delineation of the lung and its surrounding pathology. Electronically signed by Abraham Cano 10-19-2025 08:19 AM
[2025-10-19] MEDS ORDERED: OSELTAMIVIR PHOSPHATE 75 MG CAP PO SCH (09:00)
--- NOTE | 2025-10-19 09:17 | Critical Care Progress Note ---
Date of Service October 19, 2025 Assessment & Plan (1) Bilateral pneumothorax: Plan: Left-sided anterior fifth intercostal space 8.5 Kinyarwanda pigtail catheter placed with improvement of symptoms. Chest tube now clamped. Will obtain a PA and lateral film at noon. Right-sided pneumothorax is minimal. Pneumomediastinum is persistent and mild. (2) Pneumomediastinum: Plan: Stable pneumomediastinum on imaging today. (3) Influenza: Plan: Continue Tamiflu. Supportive care. Avoid positive pressure if able. (4) Subcutaneous emphysema: Plan: Secondary to underlying pneumothorax and pneumomediastinum. Should resolve with time. (5) Atelectasis: Plan: Patient with extensive bibasilar atelectasis leading to intrapulmonary shunt and hypoxemia. I think this is the main driving force for his hypoxemia. Continue incentive spirometry. Avoid positive pressure ventilation if able in light of the pneumomediastinum and pneumothorax. (6) Acute pneumonia: Plan: Continue empiric treatment with azithromycin and ceftriaxone. Would favor 5-day course of antibiotics. Plan I spent 15 minutes reviewing the electronic medical record/relevant imaging, 30 minutes discussing diagnosis and treatment plan with patient/family, and 10 minutes discussing care plan with ancillary staff such as RT/RN/pharmacist/scrap drop engineer/PT/OT/other consulting medical services. Admission and Anticipated Discharge Date Admission Date: October 18, 2025 Subjective Patient feeling much better today with less tightness of the chest and minimal cough. He is using his incentive spirometer regularly. He denies any fever. His breathing is less labored. There is no significant air leak noted from his chest tube. Review of Systems Review of Systems: All systems reviewed & are unremarkable except as noted in HPI & below Physical Exam Physical Exam: Constitutional: Patient appears to be of their stated age. Patient is in no apparent distress. Patient is well-developed. Anxious appearing. Eyes: Pupils are equal round and reactive to light. Conjunctivae are normal. Anicteric sclera. Ears nose, mouth and throat: Mallampati class 2. Normal posterior oropharynx. Uvula is midline. Neck: Trachea is midline. Visual inspection is normal. Respiratory: Tachypneic. Extensive crepitus throughout the upper chest wall neck region. Diminished breath sounds bilaterally. Cardiovascular: Regular rate and rhythm. No murmurs. No edema. Gastrointestinal: Normal bowel sounds, soft, nontender and nondistended. No hepatosplenomegaly noted. Musculoskeletal: No cyanosis. Patient is able to move all extremities. Strength is 5 out of 5 in the upper and lower extremities. Skin: No rashes, warm dry and intact. Left-sided chest tube in place Neurologic: No obvious focal neurological deficits seen. Psychiatric: Alert and oriented x3 with a euthymic affect. Results & Data Results & Data Vital Signs (Past 12 Hours) Vital Signs Temp Pulse Pulse Resp BP BP Pulse Ox 10/19/25 05:30 85 29 H 94 10/19/25 05:00 133/77 10/19/25 05:00 133/77 10/19/25 05:00 77 32 H 92 10/19/25 04:30 82 36 H 91 10/19/25 04:00 36.8 C 82 31 H 94 10/19/25 04:00 129/73 10/19/25 03:30 74 35 H 91 10/19/25 03:00 77 33 H 92 10/19/25 03:00 138/86 10/19/25 03:00 138/86 10/19/25 03:00 138/86 10/19/25 02:30 87 28 H 89 L 10/19/25 02:00 91 H 34 H 94 10/19/25 02:00 138/63 10/19/25 02:00 138/63 10/19/25 01:30 94 H 36 H 96 10/19/25 01:00 155/84 H 10/19/25 01:00 155/84 H 10/19/25 01:00 95 H 37 H 92 10/19/25 00:30 97 H 51 H 93 10/19/25 00:00 123/73 10/19/25 00:00 123/73 10/19/25 00:00 104 H 26 H 89 L 10/18/25 23:30 107 H 48 H 90 10/18/25 23:26 10/18/25 23:21 102 H 10/18/25 23:03 105 H 40 H 95 10/18/25 23:01 136/70 10/18/25 23:01 136/70 10/18/25 23:00 106 H 36 H 94 10/18/25 22:48 103 H 50 H 94 10/18/25 22:48 145/73 H 10/18/25 22:47 38.0 C H 108 H 36 H 145/73 H 96 10/18/25 22:45 38.0 C H 110 H 32 H 95 10/18/25 22:00 141/78 H 10/18/25 22:00 103 H 44 H 91 10/18/25 22:00 141/78 H 10/18/25 22:00 141/78 H 10/18/25 22:00 141/78 H 10/18/25 21:30 108 H 36 H 94 O2 Del Method O2 Flow Rate 10/19/25 05:30 Oxymask 15 10/19/25 05:00 10/19/25 05:00 10/19/25 05:00 10/19/25 04:30 10/19/25 04:00 10/19/25 04:00 10/19/25 03:30 10/19/25 03:00 10/19/25 03:00 10/19/25 03:00 10/19/25 03:00 10/19/25 02:30 10/19/25 02:00 10/19/25 02:00 10/19/25 02:00 10/19/25 01:30 10/19/25 01:00 10/19/25 01:00 10/19/25 01:00 10/19/25 00:30 Oxymask 15 10/19/25 00:00 10/19/25 00:00 10/19/25 00:00 10/18/25 23:30 10/18/25 23:26 Oxymask 10 10/18/25 23:21 10/18/25 23:03 10/18/25 23:01 10/18/25 23:01 10/18/25 23:00 10/18/25 22:48 Oxymask 10 10/18/25 22:48 10/18/25 22:47 Oxymask 10 10/18/25 22:45 10/18/25 22:00 10/18/25 22:00 10/18/25 22:00 10/18/25 22:00 10/18/25 22:00 10/18/25 21:30 Coding Level of Care Code 08109 SUB INP/OBS CARE 3/50MIN Diagnoses Bilateral pneumothorax J93.9 Pneumomediastinum J98.2 Influenza J11.1 Subcutaneous emphysema T79.7XXA Atelectasis J98.11 Acute pneumonia J18.9
--- NOTE | 2025-10-19 12:24 | XRay Report ---
XR chest 2V PA/lateral HISTORY: 20 years-old Male follow up chest tube COMPARISON: 10/19/2025 6:55 AM TECHNIQUE: PA and lateral views of the chest FINDINGS: Cardiomediastinal and hilar silhouettes are unchanged. Left apical pneumothorax. Pneumomediastinum, p neumopericardium with deep tissue air in the neck and chest redemonstrated, progressed from prior. Po ssible trace right apical pneumothorax. Left-sided chest tube distal tip overlying the lateral aspect of the left midlung. Persistent bibasilar pulmonary opacities. IMPRESSION: 1. Left-sided chest tube in place with small left apical pneumothorax, large amount of pneumomediasti num with soft tissue air of the chest and neck (progressed from the study earlier today). 2. Persistent left basilar predominant pulmonary opacities. ACT 112: Negative or not required by law. The above report was generated using voice recognition software. It may contain grammatical, syntax o r spelling errors. Electronically signed by: Earnest Boone M.D. 10/19/2025 12:22 PM
--- NOTE | 2025-10-19 15:07 | Hospitalist Progress Note ---
Date of Service October 19, 2025 Assessment & Plan (1) Bilateral pneumothorax: (2) Pneumomediastinum: (3) Influenza A: (4) Subcutaneous emphysema: Plan # Acute hypoxic respiratory failure secondary to issues below Hypoxia significantly improved - was on 10 L overnight now on 3 L nasal cannula # bilateral pneumothoraxes triggered by coughing, extensive subcutaneous emphysema related to pneumothoraces - Avoiding positive pressure ventilation due to bilateral pneumothoraces - Left pneumothorax managed with chest tube placement, under electric cell tender supervision - Chest tube will be maintained, capped today - Repeat chest x-ray today # Influenza A, possible superimposed bacterial pneumonia Symptoms of sore throat and cough improved, mild residual nausea. - Continue oseltamivir - Continue azithro and ceftriaxone x 5d # DVT Prophylaxis: low risk currently on SCDs, start chemoprophylaxis if remaining in hospital after tomorrow Medical Complexity: Medical decision making was complex, high risk for clinical deterioration morbidity, or mortality for this encounter. Admission and Anticipated Discharge Date Admission Date: October 18, 2025 Subjective Reason for Admit: Acute hypoxic respiratory failure secondary to bilateral pneumothoraces and influenza A. Patient reports significant improvement in shortness of breath after chest tube placement last night. Now experiences occasional brief episodes of slight shortness of breath, typically triggered by extensive talking or physical activity. Right upper anterior chest pain has completely subsided, and no significant discomfort from the chest tube in the left anterior chest. Hypoxia has improved; oxygen requirement decreased from high via facemask to 3 L via nasal cannula. Sore throat today, had nausea and vomiting yesterday but no vomiting today, ate eggs and toast for breakfast. Physical Exam Physical Exam: General Appearance: Awake, alert, oriented x4, very pleasant. Vital signs: Reviewed past 24h vital signs in EMR, unremarkable. HEENT: Within normal limits. Respiratory: Lungs clear to auscultation anteriorly in upper tsang. Chest tube in left mid anterior chest No airleak. Crepitus bilaterally in upper thorax and tracking up onto neck bilaterally. Cardiovascular: Regular rate and rhythm, no murmur. Gastrointestinal: Abdomen soft NT/ND, normal active bowel tones. Genitourinary: Lymphatic: Back, Musculoskeletal: Extremities: warm and well perfused, no LE edema. Skin: Warm, dry, no rashes. Neurological: Normal speech and mentation. Psychiatric: Normal. Other observations: Results & Data Results & Data Vital Signs (Past 12 Hours) Vital Signs Temp Pulse Resp BP Pulse Ox O2 Del Method O2 Flow Rate 10/19/25 13:17 150/88 H 10/19/25 13:15 96 H 28 H 92 10/19/25 13:00 93 H 30 H 94 10/19/25 12:00 89 29 H 96 10/19/25 11:00 77 34 H 93 10/19/25 11:00 148/75 H 10/19/25 10:16 125/67 10/19/25 10:15 83 31 H 97 10/19/25 10:00 88 30 H 91 10/19/25 09:00 130/96 10/19/25 09:00 88 23 92 10/19/25 08:00 143/75 H 10/19/25 08:00 80 37 H 94 10/19/25 08:00 Nasal Cannula 3 10/19/25 08:00 37.1 C 10/19/25 07:01 143/83 H 10/19/25 07:00 86 21 97 10/19/25 05:30 85 29 H 94 Oxymask 15 10/19/25 05:00 133/77 10/19/25 05:00 133/77 10/19/25 05:00 77 32 H 92 10/19/25 04:30 82 36 H 91 10/19/25 04:00 36.8 C 82 31 H 94 10/19/25 04:00 129/73 10/19/25 03:30 74 35 H 91 Laboratory Results white blood count 11.5 hemoglobin 14.6 normal platelet count normal coags normal chemistry panel potassium 4.7 creatinine 0.8 - Imaging: - Chest X-ray (10/19/2025): I personally reviewed and interpreted the CXR film and it showed: extensive bilateral subcutaneous emphysema persists, left sided chest tube in place, no increase in small left pneumothorax PG Care Time/CCT Total # of Minutes Spent Total Time Spent with Patient: Total time spent is greater than 50% in coordination of care (as documented) at patient's floor/unit and/or counseling patient: Coding Level of Care Code 25721 SUB INP/OBS CARE 3/50MIN Diagnoses Bilateral pneumothorax J93.9 Pneumomediastinum J98.2 Influenza A J10.1 Subcutaneous emphysema T79.7XXA
[2025-10-19] MEDS ORDERED: Nursing to Pharmacy Communication SCH (17:00)
[2025-10-19] MEDS: BENZONATATE 100 MG CAPSULE PO SCH (17:26)
[2025-10-19] MEDS ORDERED: COUGH DROP (SUGAR FREE) LOZ 24 LOZ/1 BOX BUCCAL PRN (18:46)
[2025-10-19] MEDS: COUGH DROP (SUGAR FREE) LOZ 24 LOZ/1 BOX BUCCAL ONE (18:50)
[2025-10-19] MEDS ORDERED: BENZONATATE 100 MG CAPSULE PO SCH (21:00)
[2025-10-19] MEDS: HYDROCODONE/ACETAMOPHEN 5/325MG TAB PO SCH (21:38)
[2025-10-20 04:15] LABS: Hematocrit (blood only) 40.9 % (42.0-52.0); Hemoglobin 14.1 g/dL (14.0-18.0); Immature Granulocytes # (auto) 0.02 K/uL (0.01-0.20); Immature Granulocytes % (auto) 0.2 %; Mean Corpuscular Hemoglobin 30.1 pg (25.0-34.0); Mean Corpuscular Volume 87.2 fL (80.0-100.0); Platelet Count 186 K/uL (130-400); RDW Standard Deviation 40.0 fL (36.4-46.3); Red Blood Count 4.69 M/uL (4.70-6.10); White Blood Count 8.87 K/ul (4.8-10.8)
[2025-10-20 04:30] LABS: Alanine Aminotransferase 15.0 U/L (7-52); Albumin Globulin Ratio 1.2 (0.9-2); Albumin Level 4.1 gm/dl (3.4-5.0); Alkaline Phosphatase 50.0 U/L (34-104); Anion Gap 8.0 (3-11); Bilirubin,Total 0.5 mg/dl (0.2-1.0); Blood Urea Nitrogen 17.0 mg/dl (6-23); Calcium 9.0 mg/dl (8.6-10.3); Carbon Dioxide 27.0 mmol/L (21-32); Chloride 102.0 mmol/L (98-107); Creatinine Clr Calc Pharmacy 161.9 ml/min; Globulin 3.3 gm/dl (2.5-4.0); Glucose 107.0 mg/dl (70-99(Fasting)); Magnesium 2.0 mg/dl (1.7-2.4); Potassium 4.1 mmol/L (3.5-5.1); Sodium 137.0 mmol/L (136-145); Total Protein 7.4 gm/dl (6.0-8.3)
[2025-10-20 04:53] LABS: INR 1.0 (0.9-1.1); Partial Thromboplastin Time 30 Seconds (21-31); Prothrombin Time 10.8 Seconds (9.0-12.0)
--- NOTE | 2025-10-20 08:20 | XRay Report ---
EXAM: XR chest 1V portable CLINICAL HISTORY: follow up ptx TECHNIQUE: An X-ray image of the chest is obtained in AP projection. COMPARISON: No prior studies are available for comparison. FINDINGS: Pulmonary Parenchyma: The degree of kinking of the in situ left hemithorax tube is less than the last study. Interval: stable chest tube seen in the left lower zone. Minimal left apical pneumothorax. Interval: stable minimal right apical pneumothorax. Interval: stable minimal pneumomediastinum. Interval: stable haziness seen in the left lower zone with blunting of the left costophrenic angle. Heart and Mediastinum: Heart size and shape are normal. No mediastinal widening or masses. No hilar or mediastinal lymphadenopathy. Bony Thorax: Bony thorax appears intact without fractures or deformities. Soft Tissues: Interval: stable subcutaneous/surgical emphysema seen in the supraclavicular region and the chest wall. IMPRESSION: No time interval changes: 1. Left-sided chest tube with mild apical pneumothorax. 2. Suggested apical rim of right pneumothorax. 3. Surgical emphysema is seen at the neck and left chest as well as the upper right chest region. 4. Suggested a blunted left costophrenic angle, possibly effusion/atelectasis. 5. Pneumomediastinum. Electronically signed by Abraham Cano 10-20-2025 08:19 AM
[2025-10-20] MEDS: OPTIRAY 320 125ml IV ONE (10:14)
[2025-10-20] MEDS: ALBUT/IPRATROP 3MG/0.5MG NEB 3 ML VIAL NEB SCH (10:26)
--- NOTE | 2025-10-20 11:04 | CT Scan Report ---
CT ANGIOGRAM OF THE CHEST CLINICAL HISTORY: Pneumothorax. COMPARISON STUDY: Chest CT dated 10/18/2025. Chest x-ray dated 10/20/2025 TECHNIQUE: Following the IV administration of 120 cc of Optiray 320, CT angiogram of the chest was pe rformed from the upper abdomen to the thoracic inlet utilizing the pulmonary embolus protocol. Images are reviewed in the axial, sagittal, and coronal planes. 3-D MIPS images are created and assessed. I V contrast was administered without complication. A dose lowering technique was utilized adhering to the principles of ALARA. CT DOSE: 997.32 mGy.cm FINDINGS: Thyroid: Imaged portions of the thyroid gland are normal in size and attenuation. Thoracic aorta: The thoracic aorta is normal in caliber and demonstrates variant 3-vessel arch anatom y. There is a bovine arch, and the left vertebral artery arises directly from the thoracic aorta. No dissection is seen. Pulmonary vasculature: The pulmonary trunk is normal in caliber. There are no filling defects identif ied in main, lobar, or segmental pulmonary branches to suggest pulmonary embolus. Heart: The heart is normal in size and without pericardial effusion. Lungs and pleural spaces: Again seen are small bilateral pneumothoraces, left side larger than right. The left pneumothorax extends from the left apex to lung base anteriorly. A left-sided chest tube is in place. This enters anteriorly between the 4th and 5th ribs, with the tip located in the periphera lly in the left midlung. Trace pleural effusions are observed. There is segmental atelectasis within left lower lobe. Patchy groundglass opacities are seen in both lower lobes, right side greater than l eft. Mediastinum: Again seen is extensive pneumomediastinum There is no mediastinal lymphadenopathy. Aracely: Clear. Axillae: There is no axillary lymphadenopathy. Upper abdomen: Partially visualized upper abdominal viscera is within normal limits. Skeletal structures: No lytic or blastic bony lesions are seen. Intrathecal gas is noted. Soft tissues: There is extensive subcutaneous emphysema in the lower neck and chest wall. This is gre atest anteriorly. Deep soft tissue gas is seen dissecting into the lower neck. IMPRESSION: 1. There is no evidence of pulmonary embolus in the main, lobar, or segmental pulmonary arteries. 2. Again seen is extensive pneumomediastinum which extends in the deep soft tissues of the lower neck . There is also extensive subcutaneous emphysema, as well as intrathecal gas. The amount of gas has i ncreased from previous. 3. Small bilateral pneumothoraces, left side larger than right with a left-sided chest tube in place. The left pneumothorax has decreased in size from 10/18/2025. 4. There is segmental atelectasis in the left lower lobe. Aeration of both lower lobes has significan tly improved from the 10/18/2025 examination. 5. Patchy groundglass consolidation is seen in the lower lobes. This could represent an infectious/in flammatory pneumonitis or possibly reexpansion edema. 6. Trace pleural effusions. 7. Additional findings as above. ACT 112: Negative or not required by law. Electronically signed by: Gael Cain M.D. 10/20/2025 11:02 AM
[2025-10-20] MEDS: ENOXAPARIN INJ 40 MG/0.4 ML SYR SQ SCH (11:13)
--- NOTE | 2025-10-20 13:37 | Hospitalist Progress Note ---
Date of Service October 20, 2025 Assessment & Plan (1) Bilateral pneumothorax: (2) Pneumomediastinum: (3) Influenza A: (4) Subcutaneous emphysema: Plan 20-year-old man who came in with shortness of breath and chest pain he was found to have influenza A and bilateral spontaneous pneumothoraces. left-sided chest tube was placed by tinning machine set up operator at the time of admission. he was started on oseltamivir and empiric antibiotics for CAP: Azithromycin and ceftriaxone # Acute hypoxic respiratory failure secondary to issues below Hypoxia significantly improved since admission- was on 10 L initially, has been on 3-4 L nasal cannula for the past 36 hours # bilateral pneumothoraxes triggered by coughing, extensive subcutaneous emphysema related to pneumothoraces - Avoiding positive pressure ventilation due to bilateral pneumothoraces - Left pneumothorax managed with chest tube placement, tinning machine set up operator adjusted the location of the tube this morning, currently on -20 suction - CTA and chest x-ray today showed some improvement. No pulmonary embolism # Influenza A, possible superimposed bacterial pneumonia Symptoms of sore throat and cough improved, nausea resolved - Continue oseltamivir - Continue azithro and ceftriaxone x 5d # DVT Prophylaxis: enoxaparin remaining in 1E ICU unit because high risk for clinical deterioration because of bilateral pneumothoraces I updated his mother at the bedside 10/20 Admission and Anticipated Discharge Date Admission Date: October 18, 2025 Subjective chest tube was adjusted this morning by tinning machine set up operator, that was somewhat painful but otherwise he is not having significant pain from the tube. no further right upper chest pain sore throat has resolved he had some productive cough last night with greenish- yellow sputum, cough today nonproductive afebrile oxygen sats are in the low 90s on 3-4 L nasal cannula Physical Exam Physical Exam: General Appearance: Normal. sitting up in the chair talking on the phone Vital signs: Reviewed past 24h vital signs in EMR, notable for: BP normal, RR 2 0 -30s overnight, SpO2 92% on 3-4 L. HEENT: continues to have extensive crepitus bilateral upper chest tracking up onto his neck and onto his left cheek Respiratory: Chest tube on -20 suction, no air leak. Cardiovascular: Regular rate and rhythm, no murmur. Gastrointestinal: nondistended. Extremities: warm and well perfused, no LE edema. Skin: Warm and dry, no rash. Neurological: AOx4, normal speech and mentation, caba x 4. Psychiatric: Normal. Results & Data Results & Data Vital Signs (Past 12 Hours) Vital Signs Temp Pulse Pulse Resp BP Pulse Ox O2 Del Method 10/20/25 10:28 92 H 18 95 Nasal Cannula 10/20/25 06:00 94 H 26 H 137/71 92 Nasal Cannula 10/20/25 05:00 94 H 26 H 133/76 91 Nasal Cannula 10/20/25 04:00 37.7 C H 96 H 18 152/78 H 91 Nasal Cannula 10/20/25 03:00 91 H 26 H 136/74 93 Nasal Cannula 10/20/25 02:00 86 32 H 132/94 94 Nasal Cannula O2 Flow Rate 10/20/25 10:28 3 10/20/25 06:00 4 10/20/25 05:00 3 10/20/25 04:00 3 10/20/25 03:00 3 10/20/25 02:00 3 Laboratory Results - Laboratory Studies: - WBC: 8.8 - Hgb: 14.3 - Plt: 313 - Chemistry panel: normal - Creatinine: 0.87 - Electrolytes: normal - LFTs: normal - Imaging: - Chest x-ray: - Persistent extensive subcutaneous emphysema - Small persistent left pneumothorax - More prominent left perihilar infiltrate - Unchanged bibasilar infiltrates - Radiologist report pending CTA chest: No pulmonary embolism, bilateral apical pneumothoraces the 1 on the left has decreased in size, improved bilateral lung collapse, bibasilar ground glass opacities. I personally reviewed the chest CTA films and radiologist report PG Care Time/CCT Total # of Minutes Spent Total Time Spent with Patient: Total time spent is greater than 50% in coordination of care (as documented) at patient's floor/unit and/or counseling patient: Coding Level of Care Code 27811 SUB INP/OBS CARE 3/50MIN Diagnoses Bilateral pneumothorax J93.9 Pneumomediastinum J98.2 Influenza A J10.1 Subcutaneous emphysema T79.7XXA
--- NOTE | 2025-10-20 13:52 | Critical Care Progress Note ---
Date of Service October 20, 2025 Assessment & Plan (1) Bilateral pneumothorax: Plan: Left-sided anterior fifth intercostal space 8.5 Slovenian pigtail catheter placed with improvement of symptoms. Repeat CT chest obtained today with minimal residual left apical pneumothorax and small amount of right apical pneumothorax. Significant pneumomediastinum and subcu air noted. Will continue to monitor in ICU. Chest tube pulled back to help with further evacuation of pneumothorax. (2) Pneumomediastinum: Plan: Stable extensive pneumomediastinum. (3) Influenza: Plan: Continue Tamiflu. Supportive care. Avoid positive pressure if able. Patient with ongoing fever. (4) Subcutaneous emphysema: Plan: Secondary to underlying pneumothorax and pneumomediastinum. Should resolve with time. (5) Atelectasis: Plan: Patient with extensive bibasilar atelectasis leading to intrapulmonary shunt and hypoxemia. I think this is the main driving force for his hypoxemia. Continue incentive spirometry. Avoid positive pressure ventilation if able in light of the pneumomediastinum and pneumothorax. Out of bed to chair. (6) Acute pneumonia: Plan: Continue empiric treatment with azithromycin and ceftriaxone. Would favor 5-day course of antibiotics. Plan I spent 10 minutes reviewing the electronic medical record/relevant imaging, 20 minutes discussing diagnosis and treatment plan with patient/family, and 10 minutes discussing care plan with ancillary staff such as RT/RN/pha rmacist/senior java web developer/PT/OT/other consulting medical services. Admission and Anticipated Discharge Date Admission Date: October 18, 2025 Subjective Patient seen and examined. He he notes some crepitus in his neck and cheek. He still has some tightness and shortness of breath. He is sitting up in a chair this afternoon. He has an occasional dry cough. Sore throat is improving. Review of Systems Review of Systems: All systems reviewed & are unremarkable except as noted in HPI & below Physical Exam Physical Exam: Constitutional: Patient appears to be of their stated age. Patient is in no apparent distress. Patient is well-developed. Anxious appearing. Eyes: Pupils are equal round and reactive to light. Conjunctivae are normal. Anicteric sclera. Ears nose, mouth and throat: Mallampati class 2. Normal posterior oropharynx. Uvula is midline. Neck: Trachea is midline. Visual inspection is normal. Respiratory: Tachypneic. Extensive crepitus throughout the upper chest wall neck region. Diminished breath sounds bilaterally. Cardiovascular: Regular rate and rhythm. No murmurs. No edema. Gastrointestinal: Normal bowel sounds, soft, nontender and nondistended. No hepatosplenomegaly noted. Musculoskeletal: No cyanosis. Patient is able to move all extremities. Strength is 5 out of 5 in the upper and lower extremities. Skin: No rashes, warm dry and intact. Left-sided chest tube in place Neurologic: No obvious focal neurological deficits seen. Psychiatric: Alert and oriented x3 with a euthymic affect. Results & Data Results & Data Vital Signs (Past 12 Hours) Vital Signs Temp Pulse Pulse Resp BP Pulse Ox O2 Del Method 10/20/25 10:28 92 H 18 95 Nasal Cannula 10/20/25 06:00 94 H 26 H 137/71 92 Nasal Cannula 10/20/25 05:00 94 H 26 H 133/76 91 Nasal Cannula 10/20/25 04:00 37.7 C H 96 H 18 152/78 H 91 Nasal Cannula 10/20/25 03:00 91 H 26 H 136/74 93 Nasal Cannula 10/20/25 02:00 86 32 H 132/94 94 Nasal Cannula O2 Flow Rate 10/20/25 10:28 3 10/20/25 06:00 4 10/20/25 05:00 3 10/20/25 04:00 3 10/20/25 03:00 3 10/20/25 02:00 3 Coding Level of Care Code 13822 SUB INP/OBS CARE 2/35MIN Diagnoses Bilateral pneumothorax J93.9 Pneumomediastinum J98.2 Influenza J11.1 Subcutaneous emphysema T79.7XXA Atelectasis J98.11 Acute pneumonia J18.9
--- NOTE | 2025-10-21 08:56 | XRay Report ---
SINGLE VIEW CHEST CLINICAL HISTORY: Pneumothoraces FINDINGS: An AP, portable, upright chest radiograph is compared to chest x-ray and chest CT dated 09/2025. The cardiomediastinal silhouette is unremarkable. There is extensive pneumomediastinum. A le ft-sided chest tube has been removed. Small bilateral pneumothoraces persist. There are mild bibasila r airspace opacities, left side greater than right. No large pleural effusion is seen. The bony thora x is grossly intact. Extensive subcutaneous emphysema is again seen in the lower neck and chest wall. IMPRESSION: 1. A left-sided chest tube has been removed. Small bilateral pneumothoraces persist. 2. There is extensive pneumomediastinum and subcutaneous emphysema which is similar to previous. 3. There are bibasilar airspace opacities, left side greater than right. ACT 112: Negative or not required by law. Electronically signed by: Gael Cain M.D. 10/21/2025 8:55 AM
--- NOTE | 2025-10-21 10:40 | Critical Care Progress Note ---
Date of Service October 21, 2025 Assessment & Plan (1) Bilateral pneumothorax: Plan: Left-sided anterior fifth intercostal space 8.5 Turkmen pigtail catheter placed with improvement of symptoms. Repeat CT chest obtained today with minimal residual left apical pneumothorax and small amount of right apical pneumothorax. Significant pneumomediastinum and subQ air noted. Chest tube d/c 10/20/2025. CXR this am with small stable pneumothoraces. Stable pneumomediastinum. Cont to monitor in ICU. Will downgrade if beds needed but patient still at risk for decline. (2) Pneumomediastinum: Plan: Stable extensive pneumomediastinum. (3) Influenza: Plan: Continue Tamiflu. Supportive care. Avoid positive pressure if able. Patient with ongoing fever this am Tmax 38.1. (4) Subcutaneous emphysema: Plan: Secondary to underlying pneumothorax and pneumomediastinum. Should resolve with time. Stable on this am CXR. (5) Atelectasis: Plan: Patient with extensive bibasilar atelectasis leading to intrapulmonary shunt and hypoxemia. I think this is the main driving force for his hypoxemia. Continue incentive spirometry. Avoid positive pressure ventilation if able in light of the pneumomediastinum and pneumothorax. Out of bed to chair. (6) Acute pneumonia: Plan: Continue empiric treatment with azithromycin and ceftriaxone. Would favor 5-day course of antibiotics. Day 3 of 5 day course. Plan I saw and evaluated the patient with KEEGAN Upton, and agree with f indings and plan as documented in the note. Patient seen and examined at bedside. No acute distress, noted with hematoma Patient's mother was also in the room at the time of examination He denied any chest pain Occasional cough with clear phlegm. Good fair appetite, no nausea or vomiting The only time he needs oxygen is at night. Constitutional: No acute distress HEENT: EOMI, PERRLA, subcutaneous emphysema appreciated in the neck as well as anterior chest Respiratory system: Decreased air entry bilaterally, no wheeze, no rhonchi, mild crackles bilateral lower lobe CVS: S1-S2 positive, no murmurs or gallops Abdomen: Soft, nontender, nondistended, positive bowel sounds x4 Extremities: +2 pulses bilaterally radialis/ dorsalis pedis, no cyanosis, no edema Neuro: Awake alert oriented x3 Psych: Normal mood and affect G/U: No Bourne Plan: Chest x-ray from today on personal review does not show any signs of pneumothorax, subcutaneous emphysema is appreciated around the neck. Chest tube removed 10/20/2025 Patient subcutaneous emphysema is going to take some time to resolve Would recommend to avoid strenuous exercise, no flying in the airplane for at least 4-6 weeks, no scuba diving Antitussive medication [id number], stool softeners if the patient complains of constipation Hemodynamically stable to be downgrade to medical floor. Case discussed with primary team Please note the above document was generated using voice recognition software. It may contain grammatical, syntax or spelling errors.Any formal questions or concerns about the content, text or information contained within the body of this dictation should be directly addressed to the provider for clarification. Admission and Anticipated Discharge Date Admission Date: October 18, 2025 Subjective Patient doing well this am. Denies chest pain and shortness of breath. Off oxygen this am. CXR shows stable bilateral small pneumothoraces with stable pneumomediastinum. Patient remained febrile overnight with low grade fever noted. Review of Systems Review of Systems: All systems reviewed & are unremarkable except as noted in HPI & below Physical Exam Physical Exam: VITALS: Reviewed. WEIGHT/BMI reviewed. GEN: Healthy appearing, well-developed, NAD. PSYCH: Good Judgment. AOx3. Normal memory, mood, and affect. HEENT -Head: NC/AT; -Eyes: PERRL, EOMI. No discharge or redn ess; -Ears: External ears are normal. -Nose: Normal nares. NECK: Supple, with no masses. CV: RRR, no m/r/g. LUNGS: CTAB, no w/r/c. ABD: Soft, NT/ND, NBS, no masses or organomegaly. : N/A SKIN: Warm, well perfused. No skin rashes or abnormal lesions. MSK: No deformities, Normal gait. EXT: No clubbing, cyanosis, or edema. NEURO: Ambulating with no limitations. Normal muscle strength and tone. No focal deficits. Results & Data Results & Data Vital Signs (Past 12 Hours) Vital Signs Temp Pulse Pulse Resp BP Pulse Ox O2 Del Method 10/21/25 07:16 85 18 98 Nasal Cannula 10/21/25 05:00 36.6 C 75 25 H 94 10/21/25 05:00 114/78 10/21/25 05:00 114/78 10/21/25 05:00 114/78 10/21/25 05:00 114/78 10/21/25 04:00 69 24 96 10/21/25 04:00 124/70 10/21/25 04:00 124/70 10/21/25 04:00 124/70 10/21/25 04:00 124/70 10/21/25 04:00 124/70 10/21/25 03:00 134/70 10/21/25 03:00 134/70 10/21/25 03:00 134/70 10/21/25 03:00 134/70 10/21/25 03:00 134/70 10/21/25 03:00 134/70 10/21/25 03:00 134/70 10/21/25 03:00 134/70 10/21/25 03:00 134/70 10/21/25 03:00 36.6 C 70 28 H 88 L 10/21/25 02:00 69 24 89 L 10/21/25 02:00 133/70 10/21/25 02:00 133/70 10/21/25 02:00 133/70 10/21/25 02:00 133/70 10/21/25 02:00 133/70 10/21/25 01:00 139/75 10/21/25 01:00 139/75 10/21/25 01:00 139/75 10/21/25 01:00 139/75 10/21/25 01:00 139/75 10/21/25 01:00 139/75 10/21/25 01:00 139/75 10/21/25 01:00 139/75 10/21/25 01:00 38 C H 139/75 10/21/25 01:00 72 25 H 93 10/21/25 00:01 135/72 10/21/25 00:01 135/72 10/21/25 00:01 135/72 10/21/25 00:01 135/72 10/21/25 00:01 135/72 10/21/25 00:00 69 34 H 94 10/20/25 23:01 129/71 10/20/25 23:01 129/71 10/20/25 23:01 129/71 10/20/25 23:01 129/71 10/20/25 23:01 129/71 10/20/25 23:00 71 19 91 O2 Flow Rate 10/21/25 07:16 2 10/21/25 05:00 10/21/25 05:00 10/21/25 05:00 10/21/25 05:00 10/21/25 05:00 10/21/25 04:00 10/21/25 04:00 10/21/25 04:00 10/21/25 04:00 10/21/25 04:00 10/21/25 04:00 10/21/25 03:00 10/21/25 03:00 10/21/25 03:00 10/21/25 03:00 10/21/25 03:00 10/21/25 03:00 10/21/25 03:00 10/21/25 03:00 10/21/25 03:00 10/21/25 03:00 10/21/25 02:00 10/21/25 02:00 10/21/25 02:00 10/21/25 02:00 10/21/25 02:00 10/21/25 02:00 10/21/25 01:00 10/21/25 01:00 10/21/25 01:00 10/21/25 01:00 10/21/25 01:00 10/21/25 01:00 10/21/25 01:00 10/21/25 01:00 10/21/25 01:00 10/21/25 01:00 10/21/25 00:01 10/21/25 00:01 10/21/25 00:01 10/21/25 00:01 10/21/25 00:01 10/21/25 00:00 10/20/25 23:01 10/20/25 23:01 10/20/25 23:01 10/20/25 23:01 10/20/25 23:01 10/20/25 23:00 Coding Level of Care Code 91679 SUB INP/OBS CARE 2/35MIN Diagnoses Bilateral pneumothorax J93.9 Pneumomediastinum J98.2 Influenza J11.1 Subcutaneous emphysema T79.7XXA Atelectasis J98.11 Acute pneumonia J18.9
--- NOTE | 2025-10-21 14:36 | Hospitalist Progress Note ---
Date of Service October 21, 2025 Assessment & Plan (1) Bilateral pneumothorax: (2) Pneumomediastinum: (3) Influenza A: (4) Subcutaneous emphysema: Plan 20-year-old man who came in with shortness of breath and chest pain he was found to have influenza A and bilateral spontaneous pneumothoraces. left-sided chest tube was placed by forge operator helper at the time of admission, removed on 10/20. he was treated with oseltamivir and empiric antibiotics for CAP: Azithromycin and ceftriaxone # Acute hypoxic respiratory failure secondary to issues below Hypoxia significantly improved since admission- was on 10 L initially, has been on room air during the daytime and 2 L while sleeping last night # bilateral pneumothoraxes triggered by coughing, extensive subcutaneous emphysema related to pneumothoraces, pneumomediastinum - Avoiding positive pressure ventilation due to bilateral pneumothoraces - there has been no evidence of esophageal rupture based on symptoms or CT imaging - Left pneumothorax managed with chest tube placement, tube removed 10/20 - CTA 10/20 showed some improvement. No pulmonary embolism - chest x-ray today improved - downgrade to PCU status, discussed with pulmonary # Influenza A, possible superimposed bacterial pneumonia Symptoms of sore throat and cough improved, nausea resolved - Continue oseltamivir - Continue azithro and ceftriaxone x 5d # DVT Prophylaxis: enoxaparin I updated his mother at the bedside 10/20 Admission and Anticipated Discharge Date Admission Date: October 18, 2025 Subjective He reports gradual improvement but continues to experience shortness of breath during physical exertion, such as walking to the bathroom. He was on room air yesterday afternoon, required 2 L of oxygen overnight, and is back on room air this morning. His chest tube was inadvertently dislodged due to a cough yesterday afternoon, But forge operator helper had already been planning on removing it. He reports no chest pain but is expectorating mucus. His appetite is low but gradually improving. Physical Exam Physical Exam: General Appearance: Normal. Vital signs: Reviewed past 24h vital signs in EMR, notable for: Tmax overnight was 38.1C. Oxygen saturation is 98% on 2 L. HEENT: Within normal limits. Respiratory: Lungs are clear to auscultation anteriorly and posteriorly, somewhat diminished posteriorly. Cardiovascular: Regular rate and rhythm, no murmur. Gastrointestinal: Abdomen is soft, nontender, nondistended. Extremities: Lower extremities are warm and well perfused without edema. Skin: Skin is warm and dry. No rashes. Neurological: Alert and oriented x4. Psychiatric: Normal. Results & Data Results & Data Vital Signs (Past 12 Hours) Vital Signs Temp Pulse Pulse Resp BP Pulse Ox O2 Del Method 10/21/25 10:45 83 18 93 Room Air 10/21/25 08:00 Room Air 10/21/25 07:16 85 18 98 Nasal Cannula 10/21/25 06:51 73 10/21/25 05:00 36.6 C 75 25 H 94 10/21/25 05:00 114/78 10/21/25 05:00 114/78 10/21/25 05:00 114/78 10/21/25 05:00 114/78 10/21/25 04:00 69 24 96 10/21/25 04:00 124/70 10/21/25 04:00 124/70 10/21/25 04:00 124/70 10/21/25 04:00 124/70 10/21/25 04:00 124/70 10/21/25 03:00 134/70 10/21/25 03:00 134/70 10/21/25 03:00 134/70 10/21/25 03:00 134/70 10/21/25 03:00 134/70 10/21/25 03:00 134/70 10/21/25 03:00 134/70 10/21/25 03:00 134/70 10/21/25 03:00 134/70 10/21/25 03:00 36.6 C 70 28 H 88 L O2 Flow Rate 10/21/25 10:45 10/21/25 08:00 10/21/25 07:16 2 10/21/25 06:51 10/21/25 05:00 10/21/25 05:00 10/21/25 05:00 10/21/25 05:00 10/21/25 05:00 10/21/25 04:00 10/21/25 04:00 10/21/25 04:00 10/21/25 04:00 10/21/25 04:00 10/21/25 04:00 10/21/25 03:00 10/21/25 03:00 10/21/25 03:00 10/21/25 03:00 10/21/25 03:00 10/21/25 03:00 10/21/25 03:00 10/21/25 03:00 10/21/25 03:00 10/21/25 03:00 Diagnostic Findings - Chest x-ray: I personally reviewed and interpreted the CXR film and it showed: - Chest tube removal - Small bilateral apical pneumothoraces - Bibasilar opacities - Extensive subcutaneous emphysema - Pneumomediastinum PG Care Time/CCT Total # of Minutes Spent Total Time Spent with Patient: Total time spent is greater than 50% in coordination of care (as documented) at patient's floor/unit and/or counseling patient: Coding Level of Care Code 94545 SUB INP/OBS CARE 3/50MIN Diagnoses Bilateral pneumothorax J93.9 Pneumomediastinum J98.2 Influenza A J10.1 Subcutaneous emphysema T79.7XXA
[2025-10-21] MEDS ORDERED: ALBUT/IPRATROP 3MG/0.5MG NEB 3 ML VIAL NEB PRN (14:39)
[2025-10-21] MEDS: HYDROCODONE/ACETAMOPHEN 5/325MG TAB PO PRN (23:01)
--- NOTE | 2025-10-22 08:30 | Critical Care Progress Note ---
Date of Service October 22, 2025 Assessment & Plan (1) Bilateral pneumothorax: Plan: Left-sided anterior fifth intercostal space 8.5 Sinhala pigtail catheter was placed with improvement of symptoms --> Chest tube d/c 10/20/2025. Repeat CT chest today with minimal residual left apical pneumothorax and small amount of right apical pneumothorax. Significant pneumomediastinum and subQ air noted (2) Pneumomediastinum: Plan: Stable extensive pneumomediastinum. (3) Influenza: Plan: Continue Tamiflu. Supportive care. Avoid positive pressure if able. No flutter valve (4) Subcutaneous emphysema: Plan: Secondary to underlying pneumothorax and pneumomediastinum. (5) Atelectasis: (6) Acute pneumonia: Plan: Continue empiric treatment with azithromycin and ceftriaxone. Would favor 5-day course of antibiotics. Plan Chest x-ray from today on personal review does not show any signs of pneumothorax, subcutaneous emphysema is appreciated around the neck. Chest tube removed 10/20/2025 Subcutaneous emphysema is going to take some time to resolve Would recommend to avoid strenuous exercise, no flying in the airplane for at least 4-6 weeks, no scuba diving Antitussive medication [id number], stool softeners if the patient complains of constipation Case discussed with primary team No further recommendation from pulmonary perspective, will sign off Please call directly with any questions Please note the above document was generated using voice recognition software. It may contain grammatical, syntax or spelling errors.Any formal questions or concerns about the content, text or information contained within the body of this dictation should be directly addressed to the provider for clarification. Admission and Anticipated Discharge Date Admission Date: October 18, 2025 Subjective Patient seen and examined at bedside. No acute distress, no adverse events overnight No chest pain, no shortness of breath Did not need oxygen last night while he was sleeping Fair appetite No unusual headache or blurry vision Review of Systems 2 Review of Systems: All systems reviewed & are unremarkable except as noted in Subjective Physical Exam 2 Physical Exam: Constitutional: No acute distress HEENT: EOMI, PERRLA, subcutaneous emphysema appreciated in the neck as well as anterior chest Respiratory system: Decreased air entry bilaterally, no wheeze, no rhonchi, mild crackles bilateral lower lobe CVS: S1-S2 positive, no murmurs or gallops Abdomen: Soft, nontender, nondistended, positive bowel sounds x4 Extremities: +2 pulses bilaterally radialis/ dorsalis pedis, no cyanosis, no edema Neuro: Awake alert oriented x3 Psych: Normal mood and affect G/U: No Bourne Skin: no rashes, warm and dry Lymphatic: no cervical or axillary lymphadenopathy Results & Data Results & Data Vital Signs (Past 12 Hours) Vital Signs Pulse Resp BP Pulse Ox Pulse Ox O2 Del Method 10/22/25 07:00 60 21 92 10/22/25 06:00 57 L 19 92 10/22/25 05:00 48 L 16 94 10/22/25 04:00 57 L 18 128/79 93 10/22/25 03:02 55 L 22 91 10/22/25 02:02 65 20 92 10/22/25 01:02 68 22 91 10/22/25 00:00 79 25 H 139/75 91 10/21/25 23:06 85 10 L 96 10/21/25 22:00 98 H 18 95 10/21/25 22:00 94 Room Air 10/21/25 21:00 91 H 34 H Laboratory Results 10/20/25 04:00 10/20/25 04:00 Coding Level of Care Code 83360 SUB INP/OBS CARE 2/35MIN Diagnoses Bilateral pneumothorax J93.9 Pneumomediastinum J98.2 Influenza J11.1 Subcutaneous emphysema T79.7XXA Atelectasis J98.11 Acute pneumonia J18.9
--- NOTE | 2025-10-22 08:48 | XRay Report ---
Clinical History: Follow-up Technique: A frontal view of the chest was obtained Comparison is made to the prior examination dated 10/20/2025 Findings: There is unchanged chest wall air There is a small apical pneumothorax bilaterally, measuring less than 5% in size. This is likely unchanged on the right and decreased on the left. The heart size is within normal limits. No pleural effusion is seen. The left-sided chest tube seen before has been removed. There is suspected mild pulmonary vascular congestion. There is suspected pneumomediastinum No fracture is noted. No foreign body is seen Impression: 1. Minimal left pneumothorax, which appears decreased in size. The left-sided chest tube seen before has been removed 2. No definite change in a suspected minimal right pneumothorax 3. Unchanged chest wall air and suspected pneumomediastinum 4. Mild interstitial prominence that may be due to pulmonary vascular congestion ACT 112: Positive. There are findings on this exam that require communication between the performing entity and the patient following Patient Test Result Information Act ([place] ACT 112) guidelines. Electronically signed by Walter Tabor 10-22-2025 08:48 AM
[2025-10-22] MEDS: OSELTAMIVIR PHOSPHATE 6 MG/ML SUSP PO SCH (08:53)
[2025-10-22 09:34] VITALS: TEMP 98.8
[2025-10-22 11:09] VITALS: RESP 17; O2SAT 96
[2025-10-22 11:12] VITALS: BP 130/75; PULSE 83
--- NOTE | 2025-10-22 11:16 | Discharge Summary ---
Discharge Summary Date of Service October 22, 2025 Principal Dx & Hospital Course #1 = Principal Diagnosis (1) Bilateral pneumothorax: (2) Pneumomediastinum: (3) Influenza A: (4) Subcutaneous emphysema: Plan 20-year-old man who came in with shortness of breath and chest pain he was found to have influenza A and bilateral spontaneous pneumothoraces. left-sided chest tube was placed by clinical account executive at the time of admission, removed on 10/20. he was treated with five days of oseltamivir and empiric antibiotics for CAP: Azithromycin and ceftriaxone # Acute hypoxic respiratory failure secondary to issues below Hypoxia significantly improved since admission- was on 10 L initially, now on room air. # bilateral pneumothoraxes triggered by coughing, extensive subcutaneous emphysema related to pneumothoraces, pneumomediastinum - there has been no evidence of esophageal rupture based on symptoms or CT imaging - Left pneumothorax managed with chest tube placement, tube removed 10/20 - CTA 10/20 showed some improvement. No pulmonary embolism - CXR day of discharge - pneumothoraces no longer visible - subcutaneous emphysema still extensive - will take time to resolve - discussed PTX precautions and return precautions with Josh and his mother # Influenza A, possible superimposed bacterial pneumonia Symptoms of sore throat and cough improved, nausea resolved - Continue oseltamivir - finish 5d course - Treated with ceftriaxone and azithromycin - completed 5d course in hospital He will follow up with [facility] I updated his mother at the bedside 10/23 Admission HPI Per Admitting Provider The patient is a 20-year-old male with no significant past medical history who had developed some general flulike symptoms for a few days. He then on the day of admission, developed severe shortness of breath and chest pain after vomiting twice. He then developed a temperature up to a max of 102 F, and had a persistent cough and sore throat. He denies any recent travels or sick exposures. No recent marijuana use. Workup in the emergency department included WBC of 11.12, glucose of 141, respiratory [employer] test positive for influenza A initial chest x-ray suggested pneumomediastinum with extensive subcutaneous emphysema in the lower neck and upper chest. There was a small right apical pneumothorax and likely a small left apical pneumothorax. There was no airspace consolidation or large pleural effusion identified. CT scan of the chest revealed a moderate size left pneumothorax and minimal right pneumothorax. Large amount of pneumomediastinum and chest wall air. No evidence of esophageal perforation. Left lower lobe collapse and partial right lower lobe collapse. Patient was seen by pulmonology/critical care Dr. Terrazas while in the ED, and had a chest tube placed left anteriorly. He was then referred for evaluation for admission by hospitalist service to the ICU Discharge Exam General Appearance: Normal. Vital signs: Reviewed past 24h vital signs in EMR, notable for: Tmax overnight was 38.1C. Oxygen saturation is 98% on 2 L. HEENT: Within normal limits. Respiratory: Lungs are clear to auscultation anteriorly and posteriorly, somewhat diminished posteriorly. Cardiovascular: Regular rate and rhythm, no murmur. Gastrointestinal: Abdomen is soft, nontender, nondistended. Extremities: Lower extremities are warm and well perfused without edema. Skin: Skin is warm and dry. No rashes. Neurological: Alert and oriented x4. Psychiatric: Normal. Discharge Plan Discharge Items Patient Disposition: Home - Self-Care Reason For Visit: PTX, PNEUMOMEDIASTINUM, INFLUENZA H3 A Discharge Diagnosis: Bilateral pneumothorax, pneumomediastinum, influenza A Condition on Discharge: Fair Activity: Per Instructions section Lifting: No more than 5 pounds Non-emergency contact: Primary Care Provider Call non-emergency contact if: you have any medication questions, your symptoms worsen and your temperature is above 101 Follow-up/Referrals: PCP,AZIZA [Primary Care Provider] - Diet: Regular Addtl Attending Provider Instructions: You were treated for bilateral pneumothorax (hole in lung causing air in chest) and pneumomediastinum (air in the central chest) caused by hard coughing. You had left sided chest tube which was removed 10/20. These were triggered by hard coughing from Influenza A. We also treated for bacterial pneumonia as a precaution but there wasn't clearcut evidence of a bacterial infection. Avoid strenuous exercise, no lifting, no flying in the airplane for at least 4-6 weeks. Walking is okay No scuba diving in the future Cough medication [id number] until strong/frequent cough resolves, senna 1 tab daily to prevent constipation (available over the counter) and avoid straining on the toilet I ordered five more days of cough medicine with codeine and a week of benzonat ate. After than you can switch to robitussin, and you can refill the benzonatate if you still need it call 911 if significant/new shortness of breath or chest pain. seek medical evaluation if ongoing fevers >101. Its common to have ongoing low-grade fevers for awhile with influenza (98.7-99.9), potentially for another week finish the course of oseltamivir (Tamiflu), its a five-day course so you only need three more doses. You're due for a tamiflu dose tonight. you actually finished the course of the other antibiotics in the hospital this morning - these are also a five day course oseltamivir is pretty well tolerated without side effects. the other antibiotics could cause diarrhea - hold senna and start a probiotic. Schedule follow up with [facility], it will probably be when you're back from break It was a pleasure taking care of you in the hospital, Rachel Davis MD For constipation: Miralax 1 capful daily or twice a day as needed Senna tabs 1-2 tabs daily as needed -these are both safe to take skilled nursing Dulcolax 5-10 mg tab daily as needed if the above meds are ineffective Dulcolax suppository per rectum daily as needed -these are for more severe constipation and are for short term use These medications are all available over the counter at the drugstore Pending Studies at Discharge: No Stand-Alone Forms: My [facility], Work/School Release, Smoking Cessation Medications and DC Order Prescriptions: New oseltamivir [Tamiflu] 75 mg capsule 75 mg PO BID Qty: 3 0RF benzonatate 100 mg Capsule 100 mg PO TID Qty: 21 1RF codeine-guaifenesin [Guaifenesin AC] 10-100 mg/5 mL Liquid 5 ml PO Q6 Qty: 100 0RF Discharge Orders: Discharge Order (Routine); Ordered 10/22/25 Ordered By: Rachel Hebert/Other Patient Handouts: Pneumothorax (Collapsed Lung) Admission Data Admit Date/Time: 10/18/25 21:48 Attending Provider: Rachel Davis Admit Provider: Mamadou Jules Primary Care Provider: PCP,NO Other Providers: Mamadou Jules; Maynor Terrazas Other Interventions: Discharge Summary Assessment (RN) Last Done: 10/22/25 11:09 Hospital Stay Data Consultations 10/18/25 21:22 ED Decision to Admit Stat 10/18/25 22:47 Consult [employer] Routine Diagnostic Imagining Performed 10/18/25 17:42 CT chest diagnostic w con Stat 10/20/25 09:54 CT angio chest PE protocol Stat Pending Results Patient Have Any Pending Studies at Discharge: No Discharge Instructions Given to Patient (Per Discharging Provider) You were treated for bilateral pneumothorax (hole in lung causing air in chest) and pneumomediastinum (air in the central chest) caused by hard coughing. You had left sided chest tube which was removed 10/20. These were triggered by hard coughing from Influenza A. We also treated for bacterial pneumonia as a precaution but there wasn't clearcut evidence of a bacterial infection. Avoid strenuous exercise, no lifting, no flying in the airplane for at least 4-6 weeks. Walking is okay No scuba diving in the future Cough medication [id number] until strong/frequent cough resolves, senna 1 tab daily to prevent constipation (available over the counter) and avoid straining on the toilet I ordered five more days of cough medicine with codeine and a week of benzonatate. After than you can switch to robitussin, and you can refill the benzonatate if you still need it call 911 if significant/new shortness of breath or chest pain. seek medical evaluation if ongoing fevers >101. Its common to have ongoing low-grade fevers for awhile with influenza (98.7-99.9), potentially for another week finish the course of oseltamivir (Tamiflu), its a five-day course so you only need three more doses. You're due for a tamiflu dose tonight. you actually finished the course of the other antibiotics in the hospital this morning - these are also a five day course oseltamivir is pretty well tolerated without side effects. the other antibiotics could cause diarrhea - hold senna and start a probiotic. Schedule follow up with [facility], it will probably be when you're back from break It was a pleasure taking care of you in the hospital, Rachel Davis MD For constipation: Miralax 1 capful daily or twice a day as needed Senna tabs 1-2 tabs daily as needed -these are both safe to take skilled nursing Dulcolax 5-10 mg tab daily as needed if the above meds are ineffective Dulcolax suppository per rectum daily as needed -these are for more severe constipation and are for short term use These medications are all available over the counter at the drugstore Total Time Total Time Spent Total Time Spent (In Minutes): <30 Coding Level of Care Code 14390 IN/OBS DISCH 30 MIN/LESS Diagnoses Bilateral pneumothorax J93.9 Pneumomediastinum J98.2 Influenza A J10.1 Subcutaneous emphysema T79.7XXA
== END 2025-10-22 11:55 | disposition home or self-care (01) | DRG 199 ==
LOC: ED 14:18 → 1E 21:48 → SUATTDRO 21:48 → 1E 22:28